=== PATIENT | male | born 1955 | race Caucasian/White ===

== ENCOUNTER 2021-06-22 11:15 | Inpatient (IN) | payer BC, SELFPAY ==
--- NOTE | ~2021-06-22 | CT_ITS ---
EXAMINATION: CT ABDOMEN AND PELVIS WITH CONTRAST CLINICAL INFORMATION: Left lower quadrant pain COMPARISON: None TECHNIQUE: Multidetector volumetric images were obtained from the superior aspect of the liver through the pubic symphysis following administration 85 mL of Omnipaque 350 intravenous contrast. Sagittal and coronal reformatted images were obtained on the technologist's workstation. Oral contrast: No This CT examination was performed using dose optimization techniques as appropriate, variously including the following: *Automated exposure control *Adjustment of mA and/or kV according to patient size (this includes techniques or standardized protocols for targeted exams where dose is matched to indication/reason for exam; i.e. extremities or head) *Use of iterative reconstruction technique DLP: 45 mGy-cm FINDINGS: LUNG BASES: The visualized lung bases are unremarkable. LIVER, GALLBLADDER, AND BILIARY TREE: Multiple low-density lesions favoring cysts. No enhancing foci. Underlying liver morphology normal. No biliary ductal dilatation. The gallbladder is unremarkable with no evidence of radiopaque gallstones, gallbladder wall thickening, or obvious pericholecystic inflammatory changes. PANCREAS: Unremarkable. SPLEEN: Unremarkable. ADRENAL GLANDS: Unremarkable. KIDNEYS AND URETERS: The kidneys are normal in size, shape, and attenuation. No hydronephrosis, hydroureter, or calculi seen. No perinephric stranding. BLADDER: Unremarkable. GASTROINTESTINAL TRACT: Acute inflammatory changes left lower quadrant centered about the distal descending/sigmoid colon junction. There is extensive circumferential bowel wall thickening and engorgement of the vasa recta centered around large diverticula. Appearance is consistent with acute diverticulitis. Likely microperforation about the giant diverticula posteriorly at the level of inflammatory changes. No organized fluid collection. There is a large diverticula filled with debris measuring up to 2.5 cm more distally within the mid sigmoid colon. There is no associated pathologic lymphadenopathy. No small bowel abnormality. Appendix normal. ABDOMINAL WALL: No significant hernia is appreciated. LYMPH NODES: Normal. VASCULAR: Unremarkable. PELVIC VISCERA: Moderate prostatic enlargement. OSSEOUS STRUCTURES: Unremarkable. CT/CT abdomen pelvis w con IMPRESSION: Acute inflammatory changes long segment of left colon as above centered about a large diverticulum with localized microperforation. No organized abscess. Appearance is most consistent with acute diverticulitis. Fleischner guidelines were followed.
[2021-06-22 11:40] VITALS: BP 168/97; PULSE 94; RESP 18; TEMP 37.4; O2SAT 97; BMI 25.8
[2021-06-22 11:53] LABS: Basophils Percent Auto 0.2 % (0-2); Hematocrit 40.2 % (42.0-52.0); Hemoglobin 13.8 g/dl (14.0-18.0); Imm Gran Abs Auto 0.12 X10*3/uL (0.00-0.03); Imm Gran Pct Auto 0.6 % (0.0-0.4); Lymphocytes Absolute Auto 1.2 X10*3/uL (1.2-4.9); Lymphocytes Percent Auto 5.5 % (20-40); MANUAL DIFF FLAG SCAN; Mean Corpuscular HGB Conc 34.3 g/dl (31.0-36.0); Mean Corpuscular Hemoglobin 32.4 pg (27.0-33.0); Mean Corpuscular Volume 94.4 fL (80.0-98.0); Mean Platelet Volume 9.7 fL (9.4-12.4); Monocytes Absolute Auto 1.9 X10*3/uL (0.1-1.2); Monocytes Percent Auto 9.2 % (2-11); Neutrophils Absolute Auto 17.5 x10*3/uL (2.0-8.3); Neutrophils Percent Auto 84.5 % (45-73); Platelet Count 217 X10*3/uL (160-400); Red Blood Count 4.26 X10*6/uL (4.60-5.80); Red Cell Distribution Width 13.3 % (11.0-16.0); SCAN SMEAR FLAG 1; White Blood Count 20.7 X10*3/uL (4.8-10.8)
[2021-06-22 12:09] LABS: Alanine Aminotransferase 19 U/L (0-40); Albumin Level 4.2 g/dL (3.5-5.0); Alkaline Phosphatase 52 U/L (39-117); Anion Gap 14 (12-20); Aspartate Amino Transferase 17 U/L (5-37); Bilirubin Direct 0.6 mg/dL (0.0-0.5); Bilirubin Total 1.4 mg/dL (0.0-1.0); Blood Urea Nitrogen 12 mg/dL (9-16); Carbon Dioxide 20 mmol/L (22-29); Chloride 106 mmol/L (96-108); Creatinine Clr Calc Pharmacy 82.2; Estimated Glomerular Filt Rate > 60; Glucose Random 133 mg/dL (60-115); Lipase 14 U/L (8-78); Potassium 3.8 mmol/L (3.3-5.1); Sodium 136 mmol/L (135-145); Total Protein 6.9 g/dL (6.5-8.0)
[2021-06-22 12:56] LABS: SLIDE REVIEW VERIFIED
[2021-06-22 17:09] VITALS: BP 178/80; PULSE 98; RESP 18; TEMP 37.9; O2SAT 97
--- NOTE | 2021-06-22 17:14 | PC.NURSE ---
pt a&ox3, vss - bp elevated, per pt forgot to take lisinopril this am. pt c/o bilateral lower abd pain, worse on the left side, 3/10 pain, and chills since 2330 06/21/21. pending ED provider.
--- NOTE | 2021-06-22 17:51 | ED_ITS ---
HPI - Abdominal Pain General Chief Complaint: Abdominal Pain Stated Complaint: Abd pain/Chills Time Seen by Provider: 06/22/21 17:41 Source: patient Mode of arrival: ambulatory Limitations: no limitations History of Present Illness HPI narrative: The patient comes emergency room complaining of left lower quadrant pain starting last night after patient went to sleep. Patient states that yesterday he was doing well, went to sleep, 2 hours later he started having left lower quadrant pain. Initially, he describes the pain as fullness, bladder discomfort. Patient urinated but the pain became more evident in the left lower quadrant. Since then, the patient has been constant, nonradiating. Patient complaining of chills. Patient has not taking anything for pain. Patient denies history of constipation. No history of abdominal surgeries. Related Data Allergies Allergy/AdvReac Type Severity Reaction Status Date / Time No Known Allergies Allergy Verified 06/22/21 11:40 Review of Systems Review of Systems Constitutional : No Weight loss, No Fever, No Chills, No Night Sweats, No Fatigue, No Malaise ENT/Mouth : No Hearing loss, No Ear Pain, No Nasal Congestion, No Sinus Pain, No Hoarseness, No sore throat, No Rhinorrhea, No Swallowing Difficulty Eyes: No Eye Pain, No Swelling, No Redness, No Foreign Body, No Discharge, No Vision Changes Cardiovascular : No Chest Pain, No SOB, No Dyspnea on Exertion, No Orthopnea, No Edema, No Palpitations Respiratory : No Cough, No Sputum, No Wheezing, No Smoke Exposure, No Dyspnea Gastrointestinal : No Nausea, No Vomiting, No Diarrhea, No Constipation, complaining of constant left lower quadrant pain, nonradiating Genitourinary : no irregular bleeding, No Dysuria, No Urinary Frequency, No Hematuria, No Urinary Incontinence, No Urgency, No Flank Pain, No Urinary Flow Changes, No Hesitancy Musculoskeletal : No joint pain, No Myalgias, No Joint Swelling Skin : No Skin Lesions, No rash Neuro : No Weakness, No Numbness, No Paresthesias, No Loss of Consciousness, No Dizziness, No Headache Psych : No Anxiety/Panic, No Depression, No SI/HI/AH/VH, No Social Issues, Heme/Lymph: No Bruising, No Bleeding,No Lymphadenopathy Endocrine : No Polyuria, No Polydipsia, No Temperature Intolerance PMFSH Social History Social History Alcohol intake: current Alcohol intake frequency: a few times a week Alcohol type: beer Patient Tobacco Use Status: Current everyday Tobacco user Smoked in Last 30 Days: Yes Use of substances other than those prescribed or required for medical reasons: No Advance Directives: No Advance Directives Information Provided: No Physical Exam ED Vital Signs: Vital Signs - 24 hr 06/22/21 11:40 06/22/21 17:09 06/22/21 17:58 Temperature 99.4 F 100.2 F 101.8 F H Pulse Rate 94 98 Respiratory Rate 18 18 Blood Pressure 168/97 H 178/80 H Pulse Oximetry 97 97 06/22/21 20:05 Temperature Pulse Rate 81 Respiratory Rate 14 Blood Pressure 133/70 Pulse Oximetry 96 BMI result Body Mass Index 25.8 Const Other: Appearance: Alert. Oriented X3. No acute distress. Eyes: Pupils equal, round and reactive to light. ENT: Pharynx normal. Neck: Normal inspection. Neck supple. No lymph nodes noted. No crepitus CVS: Normal heart rate and rhythm. Pulses normal. Normal S1 and S2 Respiratory: No respiratory distress. Breath sounds normal. No Wheezing. No rales Abdomen: Soft , tenderness to palpation in the left lower quadrant, mild rebound, no guarding Skin: Skin warm and dry. Normal skin color. Normal skin turgor. Extremities: No lower extremity edema. No Lacerations. No Rash Neuro: Oriented X 3. No motor deficit. No sensory deficit. Moving all extremities. No slurred speech. CN 2 through 12 grossly intact Psych: calm, cooperative, normal affect Course Course Course Narrative: Patient receiving IV fluid, morphine,. Patient has an elevated white blood cell count of 20.7, patient likely has diverticulitis versus colitis. CT scan pending 20:[address] scan has returned, patient has diverticulitis with a microperforation. Surgery consult pending. Patient's blood pressure in the 130s, heart rate 80, sepsis not suspected. At this time, patient does not have any abdominal pain at all. Patient has been given Zosyn. At this time sepsis is not suspect. I discussed the patient with Dr. Berry from surgery, patient will be admitted. MDM - Abdominal Pain Lab Data Result diagrams: 06/22/21 11:47 06/22/21 11:47 Labs: Lab Results 06/22/21 06/22/21 06/22/21 Range/Units 11:47 11:47 18:17 WBC 20.7 H (4.8-10.8) X10*3/uL RBC 4.26 L (4.60-5.80) X10*6/uL Hgb 13.8 L (14.0-18.0) g/dl Hct 40.2 L (42.0-52.0) % MCV 94.4 (80.0-98.0) fL MCH 32.4 (27.0-33.0) pg MCHC 34.3 (31.0-36.0) g/dl RDW 13.3 (11.0-16.0) % Plt Count 217 (160-400) X10*3/uL MPV 9.7 (9.4-12.4) fL Immature Gran % (Auto) 0.6 H (0.0-0.4) % Neut % (Auto) 84.5 H (45-73) % Lymph % (Auto) 5.5 L (20-40) % [place] % (Auto) 9.2 (2-11) % Eos % (Auto) 0.0 (0-4) % Baso % (Auto) 0.2 (0-2) % Lymph # (Auto) 1.2 (1.2-4.9) X10*3/uL [place] # (Auto) 1.9 H (0.1-1.2) X10*3/uL Eos # (Auto) 0.0 (0.0-0.4) X10*3/uL Baso # (Auto) 0.0 (0.0-0.2) X10*3/uL Abs Immat Gran (auto) 0.12 H (0.00-0.03) X10*3/uL Absolute Neuts (auto) 17.5 H (2.0-8.3) x10*3/uL Absolute Nucleated RBC 0.000 (0.0-0.012) X10*3/uL Nucleated RBC % (auto) 0.0 (0.0-0.2) /100WBC Smear Tech's Comments VERIFIED Sodium 136 (135-145) mmol/L Potassium 3.8 (3.3-5.1) mmol/L Chloride 106 (96-108) mmol/L Carbon Dioxide 20 L (22-29) mmol/L Anion Gap 14 (12-20) BUN 12 (9-16) mg/dL Creatinine 0.83 (0.5-1.4) mg/dL Estim Creat Clear Calc 82.2 Estimated GFR > 60 Random Glucose 133 H (60-115) mg/dL Calcium 9.0 (8.4-10.2) mg/dL Total Bilirubin 1.4 H (0.0-1.0) mg/dL Direct Bilirubin 0.6 H (0.0-0.5) mg/dL AST 17 (5-37) U/L ALT 19 (0-40) U/L Alkaline Phosphatase 52 (39-117) U/L Total Protein 6.9 (6.5-8.0) g/dL Albumin 4.2 (3.5-5.0) g/dL Lipase 14 (8-78) U/L Urine Color YELLOW Urine Appearance CLEAR Urine pH 6.0 (5.0-8.0) Ur Specific [place] >= 1.030 H (1.005-1.025) Urine Protein 1+ H (NEG-TRACE) MG/DL Urine Glucose (UA) NEG (NEG) MG/DL Urine Ketones 5 (NEG) MG/DL Urine Blood 1+ H (NEG) Urine Nitrite NEG (NEG) Ur Leukocyte Esterase NEG (NEG) Urine RBC 0-2 (0) /HPF Urine WBC 0 (0-4) /HPF Ur Squamous Epith Cells TRACE /LPF Urine Bacteria 1+ /LPF Discharge Plan Discharge Clinical Impression: Diverticulitis of colon with perforation Patient Disposition: Admitted As Inpatient
[2021-06-22 17:58] VITALS: TEMP 38.8
[2021-06-22] MEDS: 0.9 % Sodium Chloride 1,000 ML 999 ML IVCONT (18:14)
[2021-06-22] MEDS: Morphine Sulfate 4 MG/ML CARTRIDGE IVPUSH (18:14)
[2021-06-22] MEDS: ondansetron HCL 4 MG/2 ML VIAL IVPUSH (18:15)
[2021-06-22] MEDS: Acetaminophen 325 MG TABLET 975 MG PO (18:15)
[2021-06-22 18:24] LABS: Appearance Urine CLEAR; Color Urine YELLOW; Glucose Urine UA NEG (NEG); Leukocyte Esterase Urine NEG (NEG); Nitrite Urine NEG (NEG); Specific Gravity - Urine >= 1.030 (1.005-1.025); UACC Culture Trigger NO; Urine Blood 1+ (NEG); Urine Ketones 5 MG/DL (NEG); Urine Protein 1+ MG/DL (NEG-TRACE)
[2021-06-22 18:31] LABS: Bacteria Urine 1+ /LPF; RBC Urine 0-2 /HPF (0); Squamous Epithelial Cell Urine TRACE /LPF; WBC Urine 0 /HPF (0-4)
[2021-06-22] MEDS: iohexoL 350 MG/ML 100 ML INFUS..BTL IV (18:47)
[2021-06-22 20:05] VITALS: BP 133/70; PULSE 81; RESP 14; O2SAT 96
[2021-06-22] MEDS: Piperacillin Sodium/Tazobactam 3.375 GM in 0.9 % Sodium Chloride 50 ML IV (21:15)
--- NOTE | 2021-06-22 21:54 | PHA.MEDREC ---
Pharmacy Consult ? Medication Reconciliation Pharmacy has completed the medication reconciliation.
[2021-06-22] MEDS: Lactated Ringers 1,000 ML 125 ML IVCONT (22:31)
[2021-06-23 00:21] VITALS: BP 133/64; PULSE 76; RESP 14; O2SAT 95
--- NOTE | 2021-06-23 02:43 | PC.NURSE ---
I assumed nursing care of Salvador at 1900. Since that time he has remained alert and oriented x 3, resting in bed without complaints. He states he came tot he ED for evaluation of left sided abdominal pain and tenderness. He is aware that he has been admitted for a microperforated diverticuli. Since I assumed care he has been pain free. Respirations are non-labored, speech clear and appropriate, RR WNL, no cyanosis, room air sat's 95% or better. No nausea. No vomiting. he has remained NPO with the exception of a few ice chips to wet his whistle. Skin pink/warm/dry. IVF's infusing. IV abx completed. Pt to ED overflow unit. Nursing report to RACHEL Segovia.
[2021-06-23 05:27] VITALS: BP 130/68; PULSE 74; RESP 14; TEMP 36.8; O2SAT 97
[2021-06-23] MEDS: Lactated Ringers 1,000 ML 125 ML IVCONT (05:29)
[2021-06-23] MEDS: Piperacillin Sodium/Tazobactam 3.375 GM in 0.9 % Sodium Chloride 50 ML IV ×3 (05:29→22:17)
--- NOTE | 2021-06-23 07:57 | P.HPGS_ITS ---
History of Present Illness History of Present Illness Date of Service: 06/23/21 Chief complaint: sigmoid diverticulitis Narrative: Salvador Geronimo is a 65 year old male who reports a history of well-controlled hypertension on lisinopril, 20 mg and history of colon polyps but no personal or family history of inflammatory bowel disease nor colorectal cancer. Patient had been doing well until last night around 09:00 o'clock when he went to bed them was abruptly woken with symptoms of obstipation and left lower quadrant pain. This morning, he reports he is doing much better. Phone call and discussion with the ER physician last night showed a leukocytosis and possible contained perforation in the sigmoid colon consistent with sigmoid diverticulitis. I admitted the patient to assume care and management. The patient reports his pain is improved, denies nausea or vomiting. He reports he is passing gas but not had a bowel movement. He denies any headache, visual changes, upper respiratory tract symptoms, chest pain, difficulty breathing or shortness of breath. Abdominal pain as described. Denies urinary issues. No other significant symptoms or disclosed by the patient and a 13 point review of systems. Review of Systems 2 Review of Systems: Yes all other systems are reviewed and are negative PMFSH Family History Pertinent family history: He denies diabetes, [place], cardiac, pulmonary, hepatic or renal disorders. Personal history of colon polyps and has had 3 colonoscopies, the last was about a year ago per patient. No family history of colorectal cancer, inflammatory bowel disease. Social History Social History Alcohol intake: current Alcohol intake frequency: a few times a week Alcohol type: beer Patient Tobacco Use Status: Current everyday Tobacco user Smoked in Last 30 Days: Yes Use of substances other than those prescribed or required for medical reasons: No Advance Directives: No Advance Directives Information Provided: No Travel History Ebola Risk: Travel/Contact With Anyone From Affected Area/s: No I have personally reviewed the patient's Ebola risk: Yes Recent Travel in [place] Within the Last 8 Weeks: No Recent Out of Country Travel Within the Last 8 Weeks: No Meds Allergies Allergy/AdvReac Type Severity Reaction Status Date / Time No Known Allergies Allergy Verified 06/22/21 11:40 Active Medications: Current Medications Heparin Sodium (Porcine) (Heparin Sodium,Porcine 5,000 Unit/Ml Vial) 5,000 unit SUBCUT Q12H [facility] Last Admin: 06/22/21 22:12 Dose: Not Given Documented by: Piperacillin Sod/Tazobactam (Sod 3.375 gm/ Sodium Chloride) 50 mls @ 100 mls/hr IV Q8H [facility] Last Infusion: 06/23/21 06:05 Dose: Infused Documented by: Lactated Ringer's (Lr) 1,000 mls @ 125 mls/hr IVCONT .Q8H [facility] Last Admin: 06/23/21 05:29 Dose: 125 mls/hr Documented by: Pharmacy Consult (Consult Rx Perform Med Rec) 1 each MISCELLANE ONCE PRN PRN Reason: Consult order Sodium Chloride (0.9 % Sodium Chloride Flush 3 Ml Syringe) 3 ml IVFLUSH QSHIFT [facility] Last Admin: 06/23/21 00:05 Dose: Not Given Documented by: Home Medications Medication Instructions Recorded Confirmed Last Taken Type lisinopril 20 mg tablet 1 tab PO DAILY 06/22/21 06/22/21 06/21/21 History Physical Exam Vital Signs: Vital Signs: Last Vital Signs Temp 98.2 F 06/23/21 05:27 Pulse 74 06/23/21 05:27 Resp 14 06/23/21 05:27 BP 130/68 06/23/21 05:27 Pulse Ox 97 06/23/21 05:27 BMI result Body Mass Index 25.8 On exam, he is nontoxic and in surprisingly good spirits. He is nontoxic. NC/AT, PERRLA, EOMI Neck is supple with no masses, adenopathy or bruits, thyroid is nontender and fr ee of dominant masses Oropharynx is clear, Mallampati class 3 Heart is regular, normal S1-S2 without rubs or murmurs Lungs are clear and equal with no audible wheezing, rubs or dullness to percussion No CVA tenderness present Abdomen is overweight and soft with left lower quadrant tenderness with no rebound, rigidity or guarding. Mild peritoneal irritation to percussion in the left lower quadrant is present No hernias are appreciated. No bruits are appreciated no masses are appreciated Rectal is deferred Skin is good turgor and is free of rashes Extremities free of cyanosis clubbing edema Mood and affect and judgment appear normal Results Results Labs: Short CBC 06/22/21 Range/Units 11:47 WBC 20.7 H (4.8-10.8) X10*3/uL Hgb 13.8 L (14.0-18.0) g/dl Hct 40.2 L (42.0-52.0) % Plt Count 217 (160-400) X10*3/uL BMP 06/22/21 11:47 Sodium 136 Potassium 3.8 Chloride 106 Carbon Dioxide 20 L BUN 12 Creatinine 0.83 Calcium 9.0 Liver Function 06/22/21 Range/Units 11:47 Total Bilirubin 1.4 H (0.0-1.0) mg/dL Direct Bilirubin 0.6 H (0.0-0.5) mg/dL AST 17 (5-37) U/L ALT 19 (0-40) U/L Alkaline Phosphatase 52 (39-117) U/L Albumin 4.2 (3.5-5.0) g/dL Urine 06/22/21 Range/Units 18:17 Urine Color YELLOW Urine Appearance CLEAR Urine pH 6.0 (5.0-8.0) Ur Specific [place] >= 1.030 H (1.005-1.025) Urine Protein 1+ H (NEG-TRACE) MG/DL Urine Glucose (UA) NEG (NEG) MG/DL Abdomen CT scan report/results: report reviewed CT scan - pelvis: report reviewed Additional studies: The patient was admitted with a leukocytosis of 20.7, hemoglobin of 13.8, platelet count 217 Electrolytes are within normal parameters; BUN 12, creatinine 0.83, glucose 133 Total bilirubin is slightly elevated at 1.4, transaminases alkaline phosphatase normal. Lipase is normal. Albumin 4.2 Assessment and Plan (1) HTN (hypertension): Status: Acute (2) Cigarette smoker: Status: Acute Plan I reviewed the pathophysiology of diverticulitis in the treatment plan and possible need to repeat a colonoscopy to exclude malignancy given his minor anemia and history of colon polyps. He verbalized understanding of the need to maintain strict NPO to try to minimize need for operative resection and possible colostomy. Continue Zosyn IV q.8 hours; continued NPO except for ice chips and medications with a sip of water. Please place SCDs on the patient. Call with questions. Quality Stroke Does the patient have a stroke diagnosis?: No VTE Prior VTE?: Yes VTE Risk Level:: Medical - moderate - high VTE Device Contraindication: N/A - Device Ordered VTE Drug Contraindication: N/A - Med Ordered Procedures Date of Service Date of Service: 06/23/21
[2021-06-23 08:26] VITALS: BP 144/66; PULSE 73; RESP 20; TEMP 36.6; O2SAT 97
[2021-06-23] MEDS: Lactated Ringers 1,000 ML 100 ML IVCONT ×2 (08:32→22:16)
[2021-06-23] MEDS: Heparin Sodium,Porcine 5,000 UNIT/ML VIAL 5000 UNIT SUBCUT ×2 (08:37→22:16)
[2021-06-23 09:19] LABS: Anion Gap 11 (12-20); Blood Urea Nitrogen 10 mg/dL (9-16); Calcium 8.1 mg/dL (8.4-10.2); Carbon Dioxide 21 mmol/L (22-29); Chloride 108 mmol/L (96-108); Creatinine Clr Calc Pharmacy 88.6; Estimated Glomerular Filt Rate > 60; Glucose Random 117 mg/dL (60-115); Potassium 3.7 mmol/L (3.3-5.1); Sodium 136 mmol/L (135-145)
[2021-06-23 09:23] LABS: COVID-19 Test Negative (Negative); IDNOW Serial# 55D5AD1C
--- NOTE | 2021-06-23 11:06 | PC.NURSE ---
pt state s that voided in the toilet and note very small amt of blood in his urine, md aware.
[2021-06-23 11:43] VITALS: BP 144/71; PULSE 76; RESP 18; TEMP 36.7; O2SAT 97
[2021-06-23] MEDS: lisinopriL 20 MG TABLET PO (11:48)
[2021-06-23 13:21] LABS: MANUAL DIFF FLAG NO
[2021-06-23 13:29] LABS: Basophils Percent Auto 0.2 % (0-2); Hematocrit 35.6 % (42.0-52.0); Imm Gran Abs Auto 0.17 X10*3/uL (0.00-0.03); Imm Gran Pct Auto 0.8 % (0.0-0.4); Lymphocytes Absolute Auto 1.5 X10*3/uL (1.2-4.9); Lymphocytes Percent Auto 7.6 % (20-40); Mean Corpuscular HGB Conc 33.7 g/dl (31.0-36.0); Mean Corpuscular Hemoglobin 32.7 pg (27.0-33.0); Mean Platelet Volume 10.3 fL (9.4-12.4); Monocytes Percent Auto 5.1 % (2-11); Neutrophils Absolute Auto 17.5 x10*3/uL (2.0-8.3); Neutrophils Percent Auto 86.3 % (45-73); Platelet Count 168 X10*3/uL (160-400); Red Blood Count 3.67 X10*6/uL (4.60-5.80); Red Cell Distribution Width 13.3 % (11.0-16.0); White Blood Count 20.3 X10*3/uL (4.8-10.8)
--- NOTE | 2021-06-23 14:55 | MHC.CM.PN ---
PT REPORTS HE LIVES AT HOME WITH HIS AND IS INDEPENDENT WITH ALL CARE PT REPORTS HE USES NO DME AND HAS NO HOME SERVICES PT DOES NOT HAVE A HCP AND DECLINES TO COMPLETE ONE TODAY HE IS AWARE CM CAN ASSIST IF HE CHANGES HIS MIND PCP: MADELYN DAY PT IS COVID VACCINATED AND BOOSTED CURRENT DC PLAN IS HOME WITH NO SERVICES PT WILL DRIVE HIMSELF AT DC
[2021-06-23 17:00] VITALS: BP 151/74; PULSE 77; RESP 18; TEMP 37.3; O2SAT 96
[2021-06-23 20:20] VITALS: BP 122/65; PULSE 72; RESP 18; TEMP 36.8; O2SAT 97
[2021-06-23] MEDS: 0.9 % Sodium Chloride Flush 3 ML SYRINGE IVFLUSH (22:17)
[2021-06-24] MEDS: Piperacillin Sodium/Tazobactam 3.375 GM in 0.9 % Sodium Chloride 50 ML IV ×4 (05:44→22:42)
[2021-06-24 06:43] VITALS: BP 120/61; PULSE 67; TEMP 36.7; O2SAT 98
[2021-06-24 07:04] LABS: MANUAL DIFF FLAG NO
[2021-06-24 07:14] LABS: Basophils Percent Auto 0.3 % (0-2); Eosinophils Percent Auto 0.2 % (0-4); Imm Gran Abs Auto 0.14 X10*3/uL (0.00-0.03); Lymphocytes Absolute Auto 1.4 X10*3/uL (1.2-4.9); Lymphocytes Percent Auto 10.7 % (20-40); Mean Corpuscular HGB Conc 33.3 g/dl (31.0-36.0); Mean Corpuscular Hemoglobin 32.3 pg (27.0-33.0); Mean Corpuscular Volume 96.8 fL (80.0-98.0); Mean Platelet Volume 10.3 fL (9.4-12.4); Monocytes Absolute Auto 0.9 X10*3/uL (0.1-1.2); Monocytes Percent Auto 6.6 % (2-11); Neutrophils Absolute Auto 10.9 x10*3/uL (2.0-8.3); Neutrophils Percent Auto 81.2 % (45-73); Platelet Count 168 X10*3/uL (160-400); Red Blood Count 3.72 X10*6/uL (4.60-5.80); Red Cell Distribution Width 13.1 % (11.0-16.0); White Blood Count 13.5 X10*3/uL (4.8-10.8)
--- NOTE | 2021-06-24 08:03 | P.PNGS_ITS ---
Subjective Subjective Date of Service: 06/24/21 Patient reports: feels better, pain is less, flatus and bowel movement Interval history: The patient is evaluated for his contained micro perforation from sigmoid diverticulitis. He reports interval improvement and notes he has had 2 bowel movements with no bleeding. He is passing gas and feels less bloated. The only pain that is present is when he pushes deep in his left lower quadrant. He otherwise denies interval change in new health problems such as headache, visual disturbances, chest pain, difficulty breathing or shortness of breath. He denies lower extremity pain or swelling. Physical Exam Vital Signs: Vital Signs: Last Vital Signs Temp 98.0 F 06/24/21 06:43 Pulse 67 06/24/21 06:43 Resp 18 06/23/21 20:20 BP 120/61 06/24/21 06:43 Pulse Ox 98 06/24/21 06:43 BMI result Body Mass Index 25.8 On exam, the patient appears comfortable and is in good spirits. NC/AT, PERRLA, EOMI, sclera are anicteric, conjunctiva pink and moist Oropharynx mucosa is pink and moist, no aphthous ulcers are present Abdomen is overweight and soft with less tenderness and no peritoneal sign to percussion. On deep palpation in the left lower quadrant, there was some residual pain. Extremities are free of cyanosis clubbing and edema The patient's mood affect and insight all appear normal and intact. Objective Data Active Medications Acetaminophen (Acetaminophen 325 Mg Tablet) 650 mg PO Q6H PRN PRN Reason: Pain, Mild (Pain Scale 1-3) Heparin Sodium (Porcine) (Heparin Sodium,Porcine 5,000 Unit/Ml Vial) 5,000 unit SUBCUT Q12H [facility] Last Admin: 06/23/21 22:16 Dose: 5,000 unit Documented by: ARBEN Lactated Ringer's (Lr) 1,000 mls @ 100 mls/hr IVCONT .Q10H [facility] Last Admin: 06/24/21 06:04 Dose: Not Given Documented by: LANG Non-Admin Reason: IV Running Piperacillin Sod/Tazobactam (Sod 3.375 gm/ Sodium Chloride) 50 mls @ 100 mls/hr IV Q6H [facility] Lisinopril (Lisinopril 20 Mg Tablet) 20 mg PO DAILY [facility]; Protocol Ondansetron HCl (Ondansetron Hcl 4 Mg/2 Ml Vial) 4 mg IVPUSH Q6H PRN PRN Reason: Nausea and Vomiting Pharmacy Consult (Consult Rx Perform Med Rec) 1 each MISCELLANE ONCE PRN PRN Reason: Consult order Sodium Chloride (0.9 % Sodium Chloride Flush 3 Ml Syringe) 3 ml IVFLUSH QSHIFT [facility] Last Admin: 06/23/21 22:17 Dose: 3 ml Documented by: ARBEN Labs CBC & Chem 7: 06/24/21 06:52 06/23/21 08:39 Labs: Laboratory Results - last 24 hr 06/23/21 06/23/21 06/23/21 08:39 08:45 12:59 MCV 97.0 MCH 32.7 MCHC 33.7 RDW 13.3 Plt Count 168 MPV 10.3 Immature Gran % (Auto) 0.8 H Neut % (Auto) 86.3 H Lymph % (Auto) 7.6 L [place] % (Auto) 5.1 Eos % (Auto) 0.0 Baso % (Auto) 0.2 Lymph # (Auto) 1.5 [place] # (Auto) 1.0 Eos # (Auto) 0.0 Baso # (Auto) 0.0 Abs Immat Gran (auto) 0.17 H Absolute Neuts (auto) 17.5 H Absolute Nucleated RBC 0.000 Nucleated RBC % (auto) 0.0 Anion Gap 11 L Estim Creat Clear Calc 88.6 Estimated GFR > 60 Random Glucose 117 H Calcium 8.1 L D COVID-19 ([facility]) Negative COVID-19 Clin Com See Note 06/24/21 06:52 MCV 96.8 MCH 32.3 MCHC 33.3 RDW 13.1 Plt Count 168 MPV 10.3 Immature Gran % (Auto) 1.0 H Neut % (Auto) 81.2 H Lymph % (Auto) 10.7 L [place] % (Auto) 6.6 Eos % (Auto) 0.2 Baso % (Auto) 0.3 Lymph # (Auto) 1.4 [place] # (Auto) 0.9 Eos # (Auto) 0.0 Baso # (Auto) 0.0 Abs Immat Gran (auto) 0.14 H Absolute Neuts (auto) 10.9 H Absolute Nucleated RBC 0.000 Nucleated RBC % (auto) 0.0 Anion Gap Estim Creat Clear Calc Estimated GFR Random Glucose Calcium COVID-19 ([facility]) COVID-19 Clin Com Procedures Date of Service Date of Service: 06/24/21 Progress Note: A&P Assessment and plan (1) Diverticulitis of colon with perforation: Status: Acute (2) HTN (hypertension): Status: Acute (3) Cigarette smoker: Status: Acute Plan Will start clear liquids. We will decrease IV fluid and continue to trend physical exam and labs. Patient was instructed to stop and notify the nurse if he has abdominal pain, bloating, nausea or vomiting when he starts clear liquids. Will trend labs overnight and assess. I should be called for worsening abdominal pain, significant clinical changes or new concerns. Patient's hypertension remained stable on his lisinopril. Time Spent With Patient Time: Total time spent is greater than 50% in coordination of care (as documented) at patient's floor/unit and/or counseling patient: Quality Stroke Does the patient have a stroke diagnosis?: No VTE Prior VTE?: Yes VTE Risk Level:: Medical - moderate - high VTE Device Contraindication: N/A - Device Ordered VTE Drug Contraindication: N/A - Med Ordered
[2021-06-24] MEDS: Heparin Sodium,Porcine 5,000 UNIT/ML VIAL 5000 UNIT SUBCUT ×2 (08:37→20:46)
[2021-06-24] MEDS: 0.9 % Sodium Chloride Flush 3 ML SYRINGE IVFLUSH ×2 (08:39→22:42)
[2021-06-24] MEDS: Lactated Ringers 1,000 ML 100 ML IVCONT (08:39)
[2021-06-24] MEDS: lisinopriL 20 MG TABLET PO (08:44)
[2021-06-24 10:05] VITALS: BP 135/71; PULSE 65; RESP 12; O2SAT 99
[2021-06-24 15:04] VITALS: BP 142/72; PULSE 65; RESP 17; TEMP 36.3; O2SAT 97
[2021-06-24 15:49] VITALS: BP 139/71; PULSE 61; RESP 18; TEMP 36.3; O2SAT 99
[2021-06-24 19:45] VITALS: BP 172/74; PULSE 67; RESP 17; TEMP 36.6; O2SAT 99
[2021-06-24 23:43] VITALS: BP 129/60; PULSE 60; RESP 18; TEMP 36.4; O2SAT 97
[2021-06-25] MEDS: Lactated Ringers 1,000 ML 75 ML IVCONT (02:33)
[2021-06-25 03:46] VITALS: BP 155/60; PULSE 62; RESP 18; TEMP 36.8; O2SAT 97
[2021-06-25] MEDS: Piperacillin Sodium/Tazobactam 3.375 GM in 0.9 % Sodium Chloride 50 ML IV ×2 (04:02→11:12)
[2021-06-25 06:06] LABS: MANUAL DIFF FLAG NO
[2021-06-25 06:13] LABS: Basophils Absolute Auto 0.1 X10*3/uL (0.0-0.2); Basophils Percent Auto 0.7 % (0-2); Eosinophils Absolute Auto 0.1 X10*3/uL (0.0-0.4); Eosinophils Percent Auto 0.8 % (0-4); Hemoglobin 12.2 g/dl (14.0-18.0); Imm Gran Abs Auto 0.42 X10*3/uL (0.00-0.03); Imm Gran Pct Auto 3.9 % (0.0-0.4); Lymphocytes Absolute Auto 1.9 X10*3/uL (1.2-4.9); Lymphocytes Percent Auto 17.4 % (20-40); Mean Corpuscular Hemoglobin 32.2 pg (27.0-33.0); Mean Corpuscular Volume 97.6 fL (80.0-98.0); Mean Platelet Volume 10.4 fL (9.4-12.4); Monocytes Percent Auto 9.3 % (2-11); Neutrophils Absolute Auto 7.2 x10*3/uL (2.0-8.3); Neutrophils Percent Auto 67.9 % (45-73); Platelet Count 181 X10*3/uL (160-400); Red Blood Count 3.79 X10*6/uL (4.60-5.80); Red Cell Distribution Width 13.1 % (11.0-16.0); White Blood Count 10.7 X10*3/uL (4.8-10.8)
[2021-06-25 06:35] LABS: Anion Gap 10 (12-20); Blood Urea Nitrogen 9 mg/dL (9-16); Calcium 8.2 mg/dL (8.4-10.2); Carbon Dioxide 24 mmol/L (22-29); Chloride 109 mmol/L (96-108); Creatinine Clr Calc Pharmacy 89.7; Estimated Glomerular Filt Rate > 60; Glucose Random 88 mg/dL (60-115); Potassium 4.3 mmol/L (3.3-5.1); Sodium 139 mmol/L (135-145)
[2021-06-25 07:39] VITALS: BP 136/65; PULSE 72; RESP 17; TEMP 36.1; O2SAT 99
--- NOTE | 2021-06-25 07:56 | P.PNGS_ITS ---
Subjective Subjective Date of Service: 06/25/21 Interval history: Feels well this morning. Denies any abdominal pain. Started clear liquids yesterday and is tolerating without any increasing pain, nausea or vomiting. No further BM since yesterday morning. Physical Exam Vital Signs: Vital Signs: Last Vital Signs Temp 97.0 F 06/25/21 07:39 Pulse 72 06/25/21 07:39 Resp 17 06/25/21 07:39 BP 136/65 06/25/21 07:39 Pulse Ox 99 06/25/21 07:39 BMI result Body Mass Index 25.8 Const: General: comfortable, no acute distress and alert Nutritional Appearance: well nourished Orientation/consciousness: patient oriented x3 Resp: Effort & Inspection: normal respiratory effort GI: Inspection: No distended Palpation (GI): Soft to palpation, Tenderness to palpation present (GI) (very mild LLQ tenderness to deep palpation), no guarding and not rigid Percussion: Yes normal to percussion Skin: General skin exam: no rashes or lesions noted Neuro: General: patient oriented x3 Extrem: General: Yes no clubbing, cyanosis or edema Psych: Affect: normal affect Objective Data Active Medications Acetaminophen (Acetaminophen 325 Mg Tablet) 650 mg PO Q6H PRN PRN Reason: Pain, Mild (Pain Scale 1-3) Heparin Sodium (Porcine) (Heparin Sodium,Porcine 5,000 Unit/Ml Vial) 5,000 unit SUBCUT Q12H [facility] Last Admin: 06/24/21 20:46 Dose: 5,000 unit Documented by: ALEXANDER Lactated Ringer's (Lr) 1,000 mls @ 75 mls/hr IVCONT .[id number] [facility] Last Admin: 06/25/21 02:33 Dose: 75 mls/hr Documented by: ALEXANDER Piperacillin Sod/Tazobactam (Sod 3.375 gm/ Sodium Chloride) 50 mls @ 100 mls/hr IV Q6H [facility] Last Infusion: 06/25/21 04:29 Dose: 0 mls/hr Documented by: ALEXANDER Lisinopril (Lisinopril 20 Mg Tablet) 20 mg PO DAILY [facility]; Protocol Last Admin: 06/24/21 08:44 Dose: 20 mg Documented by: LYSSA Ondansetron HCl (Ondansetron Hcl 4 Mg/2 Ml Vial) 4 mg IVPUSH Q6H PRN PRN Reason: Nausea and Vomiting Pharmacy Consult (Consult Rx Perform Med Rec) 1 each MISCELLANE ONCE PRN PRN Reason: Consult order Sodium Chloride (0.9 % Sodium Chloride Flush 3 Ml Syringe) 3 ml IVFLUSH QSHIFT [facility] Last Admin: 06/24/21 22:42 Dose: 3 ml Documented by: ALEXANDER Labs CBC & Chem 7: 06/25/21 05:46 06/25/21 05:46 Labs: Laboratory Results - last 24 hr 06/25/21 06/25/21 05:46 05:46 MCV 97.6 MCH 32.2 MCHC 33.0 RDW 13.1 Plt Count 181 MPV 10.4 Immature Gran % (Auto) 3.9 H Neut % (Auto) 67.9 Lymph % (Auto) 17.4 L [place] % (Auto) 9.3 Eos % (Auto) 0.8 Baso % (Auto) 0.7 Lymph # (Auto) 1.9 [place] # (Auto) 1.0 Eos # (Auto) 0.1 Baso # (Auto) 0.1 Abs Immat Gran (auto) 0.42 H Absolute Neuts (auto) 7.2 Absolute Nucleated RBC 0.000 Nucleated RBC % (auto) 0.0 Anion Gap 10 L Estim Creat Clear Calc 89.7 Estimated GFR > 60 Random Glucose 88 Calcium 8.2 L Procedures Date of Service Date of Service: 06/25/21 Progress Note: A&P Assessment and plan (1) Diverticulitis of colon with perforation: Status: Acute (2) HTN (hypertension): Status: Acute (3) Cigarette smoker: Status: Acute Plan 65 year old male with HTN, smoker admitted with sigmoid diverticulitis with contained microperforation. On IV zosyn, day 3. He has done well and improved with supportive measures. VSS- afebrile. Abdomen remains very benign with only very mild tenderness to deep palpation. Will advance to low residue diet. D/c IVF. Will reassess later today, if tolerating solid diet without worsening of abdominal pain, stable for d/c to home today on PO course of Augmentin and colace. Discussed he is also to follow up with Dr. Berry in office in 7-10 days. Patient comfortable with plan. Smoking cessation ordered. Time Spent With Patient Time: Total time spent is greater than 50% in coordination of care (as documented) at patient's floor/unit and/or counseling patient: Quality Stroke Does the patient have a stroke diagnosis?: No VTE Prior VTE?: Yes VTE Risk Level:: Medical - moderate - high VTE Device Contraindication: N/A - Device Ordered VTE Drug Contraindication: N/A - Med Ordered
--- NOTE | 2021-06-25 08:12 | P.PNGS_ITS ---
Subjective Subjective Date of Service: 06/25/21 Patient reports: no new complaints, feels better and flatus Interval history: Continues to endorse interval progress & denies any left lower quadrant pain to palpation. He has had a couple more bowel movements and continues to pass gas. He has no new complaints such as headache, chest pain, visual changes, rectal bleeding upper lower extremity weakness. Physical Exam Vital Signs: Vital Signs: Last Vital Signs Temp 97.0 F 06/25/21 07:39 Pulse 72 06/25/21 07:39 Resp 17 06/25/21 07:39 BP 136/65 06/25/21 07:39 Pulse Ox 99 06/25/21 07:39 BMI result Body Mass Index 25.8 On exam, he is nontoxic and in good spirits. NC/AT, PERRLA, EOMI sclera remain anicteric and conjunctiva pink and moist Oropharynx is clear, moist no aphthous ulcers are present Abdomen is soft with no tenderness, rebound, rigidity or guarding and the peritoneal irritation to percussion is completely resolved. His lower extremities are free of cyanosis clubbing edema Mood, affect and judgment appear appropriate Objective Data Active Medications Acetaminophen (Acetaminophen 325 Mg Tablet) 650 mg PO Q6H PRN PRN Reason: Pain, Mild (Pain Scale 1-3) Heparin Sodium (Porcine) (Heparin Sodium,Porcine 5,000 Unit/Ml Vial) 5,000 unit SUBCUT Q12H [facility] Last Admin: 06/24/21 20:46 Dose: 5,000 unit Documented by: ALEXANDER Piperacillin Sod/Tazobactam (Sod 3.375 gm/ Sodium Chloride) 50 mls @ 100 mls/hr IV Q6H [facility] Last Infusion: 06/25/21 04:29 Dose: 0 mls/hr Documented by: ALEXANDER Lisinopril (Lisinopril 20 Mg Tablet) 20 mg PO DAILY [facility]; Protocol Last Admin: 06/24/21 08:44 Dose: 20 mg Documented by: LYSSA Ondansetron HCl (Ondansetron Hcl 4 Mg/2 Ml Vial) 4 mg IVPUSH Q6H PRN PRN Reason: Nausea and Vomiting Pharmacy Consult (Consult Rx Perform Med Rec) 1 each MISCELLANE ONCE PRN PRN Reason: Consult order Sodium Chloride (0.9 % Sodium Chloride Flush 3 Ml Syringe) 3 ml IVFLUSH QSHIFT [facility] Last Admin: 06/24/21 22:42 Dose: 3 ml Documented by: ALEXANDER Labs CBC & Chem 7: 06/25/21 05:46 06/25/21 05:46 Labs: Laboratory Results - last 24 hr 06/25/21 06/25/21 05:46 05:46 MCV 97.6 MCH 32.2 MCHC 33.0 RDW 13.1 Plt Count 181 MPV 10.4 Immature Gran % (Auto) 3.9 H Neut % (Auto) 67.9 Lymph % (Auto) 17.4 L [place] % (Auto) 9.3 Eos % (Auto) 0.8 Baso % (Auto) 0.7 Lymph # (Auto) 1.9 [place] # (Auto) 1.0 Eos # (Auto) 0.1 Baso # (Auto) 0.1 Abs Immat Gran (auto) 0.42 H Absolute Neuts (auto) 7.2 Absolute Nucleated RBC 0.000 Nucleated RBC % (auto) 0.0 Anion Gap 10 L Estim Creat Clear Calc 89.7 Estimated GFR > 60 Random Glucose 88 Calcium 8.2 L Procedures Date of Service Date of Service: 06/25/21 Progress Note: A&P Assessment and plan (1) Diverticulitis of colon with perforation: Status: Acute (2) HTN (hypertension): Status: Acute (3) Cigarette smoker: Status: Acute Plan The patient has made steady progress regarding his 1st bout of diverticulitis. The importance of follow-up with his PCP and previous endoscopy to consider a repeat colonoscopy based on his anatomy/morphology will need to be considered and if is deferred to his PCP and endoscopist. He will have his diet advanced to low residue. Be placed on docusate, 100 mg 2 tablets twice a day and follow up with me in 7-10 days. He is instructed to contact me a report to the emergency department if he clinically worsens. Time Spent With Patient Time: Total time spent is greater than 50% in coordination of care (as documented) at patient's floor/unit and/or counseling patient: Quality Stroke Does the patient have a stroke diagnosis?: No VTE Prior VTE?: Yes VTE Risk Level:: Medical - moderate - high VTE Device Contraindication: N/A - Device Ordered VTE Drug Contraindication: N/A - Med Ordered
[2021-06-25] MEDS: Heparin Sodium,Porcine 5,000 UNIT/ML VIAL 5000 UNIT SUBCUT (08:41)
[2021-06-25] MEDS: Docusate Sodium 100 MG CAPSULE 200 MG PO (08:42)
[2021-06-25] MEDS: 0.9 % Sodium Chloride Flush 3 ML SYRINGE IVFLUSH (08:42)
[2021-06-25] MEDS: lisinopriL 20 MG TABLET PO (08:42)
[2021-06-25 11:29] VITALS: BP 153/81; PULSE 68; RESP 18; TEMP 36.6; O2SAT 97
--- NOTE | 2021-06-25 12:36 | PM.DS ---
DS: Providers Provider Date of Service: 06/25/21 Date of admission: 06/22/21 20:55 Primary care physician: TALISHA Brito Attending physician on admission: Arnaldo Berry Attending physician on discharge: Arnaldo Berry DS: Diagnosis Discharge Diagnosis (1) Diverticulitis of colon with perforation: Status: Acute (2) HTN (hypertension): Status: Acute (3) Cigarette smoker: Status: Acute DS: Summary Hospital Course Hospital Course: BRIEF HPI: Salvador Geronimo is a 65 year old male who reports a history of well-controlled hypertension on lisinopril, 20 mg and history of colon polyps but no personal or family history of inflammatory bowel disease nor colorectal cancer. Patient had been doing well until last night around 09:00 o'clock when he went to bed them was abruptly woken with symptoms of obstipation and left lower quadrant pain. Work up showed a leukocytosis and possible contained perforation in the sigmoid colon consistent with sigmoid diverticulitis. The patient reports pain is improved this morning, denies nausea or vomiting. He reports he is passing gas but not had a bowel movement. He denies any headache, visual changes, upper respiratory tract symptoms, chest pain, difficulty breathing or shortness of breath. Abdominal pain as described. Denies urinary issues. HOSPITAL COURSE: He was admitted to the surgical service for treatment of the sigmoid diverticulitis with microperforation. He was kept NPO, started on IVF and IV zosyn q8h. He had an uncomplicated hospital course and improved with supportive measures. On HD #1, he felt improved and was without any abdominal pain. He had two non bloody bowel movements without worsening in pain. He was advanced to clear liquids as tolerated. He was ambulating. The following day, he continued to feel well. He was tolerating a clear liquid diet. His vitals were stable and abdomen remained benign with very minimal residual tenderness and without peritoneal signs. He was advanced to a low residue diet. He was reassessed later in the day and was tolerating this without any recurring symptoms. His WBC count continually downtrended and normalized. He felt well and ready for discharge. He completed a 3 day course of IV zosyn. He was discharged to home on 06/25/21 on a 7 day course of Augmentin BID and colace 2 capsules BID for one week. He is to follow up with Dr. Berry and his PCP in office upon discharge. Status at Discharge Functional status at discharge: independent ambulation Overall status at discharge: patient is back to baseline Time Spent with Patient Time attestation: Total time spent providing and/or coordinating discharge services: Discharge coordination time: Less than 30 minutes Quality: Safe Use of Opioids Does Pt have an Active Cancer Diagnosis on the Problem List?: No Quality: Stroke Does the patient have a stroke diagnosis?: No Physical Exam Vital Signs: Vital Signs: Last Vital Signs Temp 97.8 F 06/25/21 11:29 Pulse 68 06/25/21 11:29 Resp 18 06/25/21 11:29 BP 153/81 H 06/25/21 11:29 Pulse Ox 97 06/25/21 11:29 BMI result Body Mass Index 25.8 Const: General: comfortable, no acute distress and alert Orientation/consciousness: patient oriented x3 Resp: Effort & Inspection: normal respiratory effort GI: Inspection: No distended Palpation (GI): Soft to palpation, Tenderness to palpation present (GI) (very mild to deep palpation, LLQ), no guarding and not rigid Skin: General skin exam: no rashes or lesions noted Neuro: General: patient oriented x3 DS: Data Data Completed and Pending Labs on day of discharge: Laboratory Results - last 24 hr 06/25/21 06/25/21 05:46 05:46 WBC 10.7 RBC 3.79 L Hgb 12.2 L Hct 37.0 L MCV 97.6 MCH 32.2 MCHC 33.0 RDW 13.1 Plt Count 181 MPV 10.4 Immature Gran % (Auto) 3.9 H Neut % (Auto) 67.9 Lymph % (Auto) 17.4 L [place] % (Auto) 9.3 Eos % (Auto) 0.8 Baso % (Auto) 0.7 Lymph # (Auto) 1.9 [place] # (Auto) 1.0 Eos # (Auto) 0.1 Baso # (Auto) 0.1 Abs Immat Gran (auto) 0.42 H Absolute Neuts (auto) 7.2 Absolute Nucleated RBC 0.000 Nucleated RBC % (auto) 0.0 Sodium 139 Potassium 4.3 Chloride 109 H Carbon Dioxide 24 Anion Gap 10 L BUN 9 Creatinine 0.76 Estim Creat Clear Calc 89.7 Estimated GFR > 60 Random Glucose 88 Calcium 8.2 L Discharge Plan Discharge Patient Disposition: Home, Self-Care Discharge Diagnosis: sigmoid diverticulitis with microperforation Referrals: Tania Morton PA [Primary Care Provider] - 1 Week Arnaldo Berry MD [Physician] - 1 Week Discharge Medications: New amoxicillin-pot clavulanate [Augmentin] 500-125 mg tablet 1 tab PO BID Qty: 14 0RF docusate sodium [Colace] 100 mg capsule 100 mg PO BID Qty: 60 1RF Continued lisinopril 20 mg tablet 1 tab PO DAILY 0RF Discharge Orders: Discharge Order (Routine); Ordered 06/25/21 Ordered By: Trish Torrez Diet: other and regular diet Activity on Discharge: As tolerated Stand Alone Forms: Patient Portal Discharge page Activity Restrictions/Additional Instructions: You were admitted to the hospital and treated for diverticulitis of your colon. As explained, diverticular weak areas with thinner funez they can get plugged with stool and infected or can bleed. Resting her intestines allows healing and IV antibiotics will be switched to oral antibiotics to resolve the infection. If your pain returns and becomes worse, please contact Dr. Berry [phone] or report to the nearest emergency department. For the 1st week at home, take the antibiotics you were prescribed and be sure to take docusate, 100 mg, 2 tablets in the morning and 2 tablets later at night. Follow instructions for a low residue diet which include some sort of protein/meat/poultry or fish and a starch. Very well cooked green vegetables are acceptable but should be minimized at this point. After 1-2 weeks, he will need to go on to a high fiber diet and typically stop taking the stool softener. However, a few suffer from constipation, this medicine can be taken with little side effects if needed. The most important part to remember is that colon cancer can mimic diverticulitis and so follow-up with your regular doctor and a instructional interventionist for a colonoscopy is in order. Please contact your regular doctor/PCP at discharge. If you prefer to follow up with your primary care provider, please be sure that there comfortable dealing with diverticular disease. Alternately, call Dr. Berry over this office for follow-up in 1-2 weeks. Resume taking your regular medications. If you feel comfortable driving and working, you can return to work. Care Plan Goals: Return to baseline health and gradual return to activity as tolerated. Health Concerns: Sigmoid diverticulitis Plan of Treatment: Discharge to home on PO Augmentin Colace Follow up in office Assessment: Improved Patient Instructions: Diverticulitis (DC), Diverticulitis Diet (DC)
--- NOTE | 2021-06-25 13:14 | MHC.CM.PN ---
PATIENT IS DISCHARGED HOME - SELF CARE. RN AWARE OF PLAN.
== END 2021-06-25 13:56 | disposition home or self-care (01) | DRG 244 ==
LOC: HO.ED 21:39 → HO.EDOVER 22:08 → HO.S3 06-24 12:53
PROVIDERS: Admitting Provider Surgery; Emergency Provider Emergency Medicine; PCP Physician Assistant; Visit Provider Surgery
DX: K57.20 Diverticulitis of large intestine with perforation and abscess without bleeding (principal); I10 Essential (primary) hypertension; F17.210 Nicotine dependence, cigarettes, uncomplicated; Z20.822 Contact with and (suspected) exposure to COVID-19; Z71.6 Tobacco abuse counseling; Z86.010 Personal history of colon polyps; Z79.899 Other long term (current) drug therapy
CPT/HCPCS: 36415; 74177; 80048; 80076; 81001; 83690; 85025; 87635; 96361; 96365; 96375; 99285; J2270; J2405; J2543; Q9967

== ENCOUNTER 2024-12-16 02:23 | Inpatient (IN) | payer MEDICARE, SELFPAY ==
[2024-12-16] VITALS (12 sets, daily range): BP systolic 100–158; BP diastolic 48–69; PULSE 52–74; RESP 10–18; TEMP 36.7–37.7; O2SAT 92–98; BMI 25.8; BMI 25.3
--- NOTE | ~2024-12-16 | CT_ITS ---
CLINICAL HISTORY: LLQ Pain; Hx Divertic CT abdomen and pelvis with contrast Comparison: None provided Findings: Lung bases are clear. Gallbladder is unremarkable. No biliary dilatation. Multiple bilateral hepatic hypodensities are present measuring up to 2.3 x 1.5 cm in the right hepatic lobe which likely reflect hepatic cysts versus biliary hamartomas the spleen, pancreas, bilateral adrenal glands and bilateral kidneys are unremarkable. No urolithiasis. No bowel obstruction, pneumoperitoneum, or pneumatosis. Diverticulosis of the descending colon is present with mild associated fat stranding ( series 4 image 347 through 352 ) could suggest developing acute diverticulitis. No associated collections are present. Appendix is dilated measuring up to 1.5 cm and contains hyperdense contents proximally adjacent to the cecum suggesting stone impaction. No associated perforation or collections are identified.Constellation of findings are consistent with acute appendicitis. Bilateral hydroceles. Otherwise pelvic contents unremarkable. No suspicious osseous lesions or acute fracture. No acute soft tissue pathology. IMPRESSION: Acute appendicitis associated with appendicolith and no associated perforations or collections. Descending colonic diverticulosis with mild associated fat stranding could reflect developing diverticulitis. This document has been electronically signed by: Dada Garcia MD on 12/16/2024 07:47:08
[2024-12-16 02:49] LABS: Hematocrit 40.0 % (42.0-52.0); Hemoglobin 13.5 g/dl (14.0-18.0); Imm Gran Abs Auto 0.05 X10*3/uL (0.00-0.03); Imm Gran Pct Auto 0.3 % (0.0-0.4); Lymphocytes Absolute Auto 2.4 X10*3/uL (1.2-4.9); MANUAL DIFF FLAG NO; Mean Corpuscular HGB Conc 33.8 g/dl (31.0-36.0); Mean Corpuscular Hemoglobin 31.3 pg (27.0-33.0); Mean Corpuscular Volume 92.6 fL (80.0-98.0); NRBC Abs Auto 0.000 X10*3/uL (0.0-0.012); NRBC Pct Auto 0.0 /100WBC (0.0-0.2); Platelet Count 240 X10*3/uL (160-400); Red Blood Count 4.32 X10*6/uL (4.60-5.80); White Blood Count 16.7 X10*3/uL (4.8-10.8)
--- OUTSIDE RECORDS SUMMARY | 2024-12-16 02:55 | XMS_ITS | Clinical Summary ---
Author Organization [facility] Address [address] [place] [address] Care Team Providers Care Plaster Caster Name Role Phone Pcp, No MD Primary Care Provider Unavailabl e Allergies No known active allergies Medications lisinopriL (PRINIVIL) 20 mg tablet daily. 3 Active oxyCODONE (Roxicodone) 5 mg immediate release tablet Take 5 mg by mouth every 4 (four) hours as needed for moderate pain (4-7) for up to 8 doses. 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 (06/09/2022): Added automatically from request for surgery [id number] Social History Tobacco Use Types Packs/Day Years Used Date Smoking Tobacco: Former Cigarettes Q uit: 04/2022 Smokeless Tobacco: Never Alcohol Use Standard Drinks/Week Comments Not Currently 0 (1 standard drink = 0.6 oz pur e alcohol) Sex and Gender Information Value Date Recorded Sex Assigned at Not on file Legal Sex Male 4:00 AM EST Gender Identity Not on file Sexual Orientation [place] 05/18/2022 12 :44 PM EDT Last Filed Vital Signs Vital Sign Reading Time Taken Comments Blood Pressure 157/76 05/16/2023 9:54 AM EDT Pulse 67 05/16/2023 9:54 AM EDT Temperature 36.2 C (97.2 F) 06/17/2022 2:15 PM EDT Respiratory Rate 13 06/17/2022 2:15 PM EDT Oxygen Saturation 96% 06/17/2022 2:20 PM EDT Inhaled Oxygen Concentration - - Weight 67.9 kg (149 lb 12.8 oz) 05/16/2023 9:54 AM EDT Height 167.6 cm (5' 5.98 ) 05/16/2023 9:54 AM ED T Body Mass Index 24.19 05/16/2023 9:54 AM EDT Plan of Treatment Health Maintenance Due Date Last Done Comments CT Colonography 1955 Colonoscopy 1955 Colorectal Cancer Screening 1955 FIT-DNA (Cologuard) 1957 FIT 1957 FOBT 1957 Flex Sigmoidoscopy - 5y 1957 HIV Screening 1955 Medicare Annual Wellness (AWV) 1955 Hepatitis C Screening 08/16/1975 Zoster Vaccines (1 of 2) 08/16/2007 COVID-19 Vaccine ( season) 2024 11/30/2021, 12/29/2020, 03/19/2020, Additional history exists Influenza Vaccine (#1) 2024 , 11/21/2022, 11/18/2021 DTaP,Tdap,and Td Vaccines (3 - Td or Tdap) 11/21/2033 11/22/2023, 04/19/2011 Pneumococcal Vaccine, 50+ Years Completed 11/21/2022, 11/18/2021, 09/02/2015 HPV Vaccines Aged Out No longer eligi ble based on patient's age to complete this topic Hepatitis A Vaccines Aged Out No long er eligible based on patient's age to complete this topic MMR Vaccines Aged Out No longer eligi ble based on patient's age to complete this topic Meningococcal Vaccine Aged Out No jodi tanya eligible based on patient's age to complete this topic Insurance [employer]ED MEDICARE Advance Directives For more information, please contact: [phone] Documents on File Type Date Recorded Patient General Maintenance Technician Expl anation Advance Directives 06/17/2022 10:20 AM Care Teams Plaster Caster Relationship Specialty Start Date End Date PcpEstelle MD [address] [place] [address] PCP - General Internal Medicine 06/22/18
--- OUTSIDE RECORDS SUMMARY | 2024-12-16 02:55 | XMS_ITS ---
Author Name [facility] Organization Unknown History of Medication Use Medication Directions Dispensed Refills Start Date End Date Stat us oxyCODONE (Roxicodone) 5 mg immediate release tablet Take 5 mg by mouth every 4 (four) hours as needed for moderate pain (4-7) for up to 8 doses. 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 ProblemAct [facility] Encounters Encounter Type Encounter Reason Primary Diagnosis Location Date Ambulatory Malignant neoplasm o f mouth, unspecified Malignant neoplasm of mouth, unspecified [facility] 05/16/2023 Ambulatory Malignant neoplasm o f mouth, unspecified Malignant neoplasm of mouth, unspecified [facility] 11/15/2022 Ambulatory Malignant neopla sm of mouth, unspecified [facility] 07/01/2022 Ambulatory Malignant neopla sm of mouth, unspecified [facility] 05/25/2022 Care Team Organization Name Specialty Phone Email Start Date End Da te [facility] PCP,No Primary Care 05/25/202203/2023 [facility] NO PCP Primary Care 05/25/202206/2022 [facility] Tania Morton Primary Care 12/28/2021 10/09/2023
--- OUTSIDE RECORDS SUMMARY | 2024-12-16 02:55 | XMS_ITS | Clinical Summary ---
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 30 each 11 4 01/29/20 25 Active nicotine (Nicoderm CQ) 21 mg/24 hrIndications:Smok ing Place 1 patch on the skin 1 (one) time each day at the same time. Use one patch of 21 mg daily for 6 weeks 42 each 4 Active nicotine (Nicoderm CQ) 14 mg/24 hrIndications:Smok ing Place 1 patch on the skin 1 (one) time each day at the same time for 14 days. After finishing the 21 mg patches; start one patch of 14 mg daily for 14 days 14 each 4 Active nicotine (Nicoderm CQ) 7 mg/24 hrIndications:Smok ing Place 1 patch on the skin 1 (one) time each day at the same time for 14 days. After finishing the 14 mg patches; start one patch of 7 mg daily for 14 days 14 each 4 Active lisinopriL (PRINIVIL,ZESTRIL) 20 mg tablet Take 1 tablet (20 mg total) by mouth 1 (one) time each day. 90 tablet 3 5 Active aspirin 81 mg chewable tablet Chew 1 tablet (81 mg total) 1 (one) time each day. Active sildenafiL (VIAGRA) 100 mg tablet Take 1 tablet (100 mg total) by mouth if needed for erectile dysfunction. 10 tablet 3 5 Active Active Problems Problem Noted Date Diagnosed Date Pure hypercholesterolemia 07/16/2024 Assessment & Plan (07/16/2024 6:11 PM EDT): The patient has a history of hyperlipidemia. He also has a history of mild coronary artery calcifications. The patient was started on rosuvastatin 10 mg orally daily. With this therapy, the LDL was found to be 51 on his recent lipid panel. Therefore, his LDL is at target. Will continue his current therapy. Coronary artery calcification 01/29/2024 Assessment & Plan (07/16/2024 6:11 PM EDT): The patient was found to have mild coronary artery calcifications on a previous chest CT scan done in November 2023. The patient denies any anginal symptoms. He was started on rosuvastatin for cholesterol control which has led to a significant improvement in his LDL levels. He will be started on aspirin 81 mg orally daily for primary prevention. No need for antianginal agents at this point given the absence of any anginal symptoms. No need for stress testing at this point given that the patient is currently asymptomatic from a cardiac standpoint. Assessment & Plan (01/29/2024 3:44 PM EST): The patient underwent a lung cancer surveillance chest CT scan in November 2023. The study described the presence of mild coronary artery calcifications. His last lipid panel from May 2023 noted an LDL of 113. Given his coronary artery calcifications, his LDL target is 70 or below. As such, patient should be started on statin therapy. The patient is agreeable to this. Will start the patient on rosuvastatin 10 mg orally daily. Will request for the patient to complete a follow-up lipid panel in 8 weeks to make sure that his LDL is controlled after the introduction of the low-dose rosuvastatin. Orders: rosuvastatin (CRESTOR) 10 mg tablet; Take 1 tablet (10 mg total) by mouth 1 (one) time each day. Comprehensive metabolic panel; Future Lipid panel with reflex to direct LDL; Future Preop cardiovascular exam 01/29/2024 Assessment & Plan (01/29/2024 3:44 PM EST): The patient is currently being considered for cataract surgery. A cataract surgery is considered to be a low risk noncardiac procedure. Currently, the patient is asymptomatic from a cardiac standpoint. His baseline EKG obtained today in our office showed a normal sinus rhythm and no significant abnormalities. The patient has at least an average functional capacity based on his usual activities. As such, no further cardiac testing is needed at this point. The patient should proceed with the proposed cataract surgery as planned. According to the revised cardiac risk index, the patient has a low cardiac risk while undergoing the proposed low risk noncardiac surgery procedure. Cigarette smoker 01/29/2024 Assessment & Plan (07/16/2024 6:11 PM EDT): The patient has a history of chronic cigarette smoking. The patient states he was able to quit smoking temporarily with the use of nicotine patches. Afterwards, he resumed smoking again. We discussed the dangers of continued smoking including development of an KY. I explained to the patient that his KY risk is increased due to his smoking and that this increased risk is independent of his current medical therapy. I also explained to the patient that continued smoking can lead to COPD and even a malignancy. The patient stated that he will try to quit smoking again. We discussed the possibility of using nicotine replacement therapy again. The patient states that he still has his patches and will try to restart the patches again in order to quit smoking. Assessment & Plan (01/29/2024 3:44 PM EST): The patient has been smoking cigarettes since age 1972. He is currently smoking 10 to 14 cigarettes/day. During today's visit, we had an extensive conversation regarding the importance of quitting smoking. We discussed the role of smoking in the development of CAD and PAD. We also discussed that smoking is associated with an increased risk of KY, cancer and stroke. The patient is willing to try to stop smoking. We discussed the possible role of nicotine replacement therapy. The patient states that he has had the most success with nicotine patches in the past. As such, the patient is willing to trial nicotine patches. Will start with a nicotine patch of 21 mg every day for 6 weeks. Then, the patient will decrease the dose of the nicotine patch to 14 mg patch every day for 2 weeks. Then, the patient will decrease the dose of the nicotine patch to 7 mg every day for 2 weeks. I gave him written instructions regarding the appropriate use of the nicotine patch and the dose sequence. Orders: nicotine (Nicoderm CQ) 21 mg/24 hr; Place 1 patch on the skin 1 (one) time each day at the same time. Use one patch of 21 mg daily for 6 weeks nicotine (Nicoderm CQ) 14 mg/24 hr; Place 1 patch on the skin 1 (one) time each day at the same time for 14 days. After finishing the 21 mg patches; start one patch of 14 mg daily for 14 days nicotine (Nicoderm CQ) 7 mg/24 hr; Place 1 patch on the skin 1 (one) time each day at the same time for 14 days. After finishing the 14 mg patches; start one patch of 7 mg daily for 14 days Abnormal EKG 01/26/2024 Vitamin D deficiency 05/23/2023 Prediabetes 11/13/2020 Assessment & Plan (07/17/2024 11:25 AM EDT): Orders: Hemoglobin A1c; Future Osteoarthritis 12/04/2018 Overview (12/15/2023): Thoracic Spine Chronic obstructive airway d isease with asthma ([facility] V24, [facility] V28) 08/17/2017 Hypertension 08/17/2017 Assessment & Plan (07/17/2024 11:25 AM EDT): Assessment & Plan (07/16/2024 6:11 PM EDT): The patient has a history of arterial hypertension. The patient's blood pressure today was noted to be well controlled. We'll continue the current antihypertensive medication regimen. Tubular adenoma 08/17/2017 Overview (12/15/2023): 01/2014 CN, Repeat 5 yrs ED (erectile dysfunction) 06/06/2017 Resolved Problems Problem Noted Date Diagnosed Date Resolved Date Aortic atherosclerosis ([facility] V24) 12/04/2018 01/29/2024 Encounters Date Type Department Care Team Description 11/26/2024 7:29 AM EDT - 11/26/2024 11:59 PM EDT Hospital Encounter [facility] CT Scan [address] [place] [address] Encounter for screening for lung cancer; Cigarette smoker Discharge Disposition: Home or Self Care 11/06/2024 Telephone Lung Screening Program - [place] [address] [facility] [address] [place] [address] Sheri Bob MD from Last 3 Months Immunizations Immunization Administration Dates Next Due Hepatitis B (Dklfrdb-Q-Dvcir , Recombivax HB-Adult) 19yo and older 09/26/2019 Influenza Quadravalent, MDCK , 0.5ml, preservative free (Flucelvax) 6mo and older 11/18/2021 Influenza trivalent, 0.5mL ( Fluad) 65yo and older 11/22/2023,11/21/2022 Moderna (age 6mo & older) Bi valent, COVID-19, 0.5 mL or 0.25 mL dosage 11/30/2021 Moderna SARS-CoV-2 COVID-19, mRNA, LNP-S, preservative free 12/29/2020,03/19/2020,02/19/2020 Pneumococcal conjugate 13 va lent (Prevnar 13, PCV13) 2mo and older 09/02/2015 Pneumococcal conjugate 20 va lent (Prevnar 20, PCV 20) 2mo and older 11/21/2022 Pneumococcal polysaccharide 23 valent (Pneumovax 23) 2yo and older 11/18/2021 Tdap Tetanus diptheria acell ular pertussis (Boostrix; Adacel) 7yo and older 11/22/2023,04/19/2011 Surgical History Surgery Date Site/Laterality Comments HEMORRHOID SURGERY PROCEDURE: DESTRUCTION OF HEMORRHOIDS COLONOSCOPY 02/05/2014 PROCEDURE: HISTORICAL COLONOSCOPY; COMMENT: Colon Polyps. Repeat 5 yrs EYE SURGERY Bilateral cataracts 2024, Dr. Bowens Medical History Medical History Date Comments Chronic obstructive airway d isease with asthma (CMS/HCC V24, CMS/HCC V28) 08/17/2017 DX:Chronic obstructive airwa y disease with asthma (HCC) ED (erectile dysfunction) 06/06/2017 DX:ED (erectile dysfunction) Hypertension 08/17/2017 DX:Hypertension Aortic atherosclerosis (CMS/HCC V24) 12/04/2018 DX:Aortic atherosclerosis (HCC) CAD (coronary artery disease) 12/04/2018 DX :CAD (coronary artery disease) Osteoarthritis 12/04/2018 DX:Osteoarthriti s; COMMENT: Thoracic Spine Tubular adenoma 08/17/2017 DX:Tubular adeno ma; COMMENT: 01/2014 CN, Repeat 5 yrs Tobacco abuse disorder DX:Tobacc o abuse disorder Prediabetes DX:Prediabetes Vitamin D deficiency DX:Vitamin D deficiency Family History Medical History Relation Name Comments No Known Problems Father No Known Problems Mother Relation Name Status Comments Father Mother Social History Tobacco Use Types Packs/Day Years Used Date Smoking Tobacco: Every Day Cigarettes Smokeless Tobacco: Never Tobacco Cessation:Ready to Q uit: Not Asked; Counseling Given: Not Answered Alcohol Use Standard Drinks/Week Comments Not Currently 1 (1 standard drink = 0.6 oz pur e alcohol) Housing Instability Answer Date Recorde d Are you worried that in the next 2 months you may not have stable housing? No 07/10/2024 Food Access & Nutrition Answer Date Rec orded Do you have access to a vari ety of food including fruits and vegetables? Yes 07/10/2024 Access to Healthcare Answer Date Record ed Within the last 3 months, ho w many times did you visit the emergency department for your medical care? 0 07/10/2024 Health Literacy Answer Date Recorded How often do you need to hav e someone help you when you read instructions, pamphlets, or other written material from your doctor or pharmacy? Never 07/10/2024 Caregiver: How often do you need to have someone help you when you read instructions, pamphlets, or other written material from your doctor or pharmacy? Not on file 07/10/2024 Financial Risk Answer Date Recorded How hard is it for you to pa y for the very basics like food, housing, medical care, and air conditioning / heating? Hard 07/10/2024 Transportation Answer Date Recorded Has the lack of transportati on kept you from meetings, work, or from getting things needed for daily living? No Has the lack of transportati on kept you from medical appointments or from getting medications? No 07/10/2024 Social Isolation Answer Date Recorded How often do you feel lonely or isolated from th ose around you? Never 07/10/2024 Food Risk Answer Date Recorded Within the past 12 months we worried whether our food would run out before we got money to buy more. Never true 07/10/2024 Within the past 12 months th e food we bought just didn't last and we didn't have money to get more. Never true 07/10/2024 Dependent Care Answer Date Recorded Do you need help finding or paying for care for your loved ones. For example, child's nurse or elderly care for an older adult? No 07/10/2024 Education Answer Date Recorded Do you think completing more education or training, like finishing a GED, going to college, or learning a trade, would be helpful for you? No 07/10/2024 Employment and Income Answer Date Recor ded During the last four weeks, have you been actively looking for work? No 07/10/2024 Living Situation Answer Date Recorded What is your living situation? Unrecognized valu e 07/10/2024 Sex and Gender Information Value Date Recorded Sex Assigned at Male 11/25/2024 2:57 PM EDT Legal Sex Male 1:03 AM EST Gender Identity Male 11/25/2024 2:57 PM EDT Sexual Orientation Not on file Obstetrics History Last Filed Vital Signs Vital Sign Reading Time Taken Comments Blood Pressure 110/67 07/17/2024 11:22 AM EDT Pulse 73 07/17/2024 11:09 AM EDT Temperature 37 C (98.6 F) 07/17/2024 11:09 AM EDT Respiratory Rate - - Oxygen Saturation 97% 07/17/2024 11:09 AM EDT Inhaled Oxygen Concentration - - Weight 69.6 kg (153 lb 6.4 oz) 07/17/2024 11:09 AM EDT Height 165.1 cm (5' 5 ) 07/17/2024 11:09 AM EDT Body Mass Index 25.53 07/17/2024 11:09 AM EDT Plan of Treatment Upcoming Encounters Date Type Department Care Team (Late st Contact Info) Description 01/17/2025 10:45 AM EST Office Visit Internal Medicine - [address] [place] [address] Tania Morton PA [address] [facility] [address] [place] [address] Health Maintenance Due Date Last Done Comments RSV Immunization Adult Patients (1 - Risk 50-74 years 1-dose series) 08/16/2007 Hepatitis B Vaccines (2 of 3 - 19+ 3-dose series) 10/24/2019 09/26/2019 Abdominal Aortic Aneurysm (AAA) Screen 01/29/2022 Zoster Vaccines (2 of 2) 08/30/2024 07/05/2024 COVID-19 Vaccine (6 - Moderna risk season) 2024 01/04/2024, 11/30/2021, 12/29/2020, Additional history exists Influenza Vaccine (#1) 2024 , 11/21/2022, 11/18/2021, Additional history exists Hypertension/CHF/CAD Annual BMP Blood Test 07/09/2025 07/09/2024, 01/16/2024, 05/22/2023 Social Influencers of Health Screening 07/10/2025 07/10/2024 Falls Risk Assessment 07/17/2025 07/17/2024 Medicare Annual Wellness Visit 07/17/2025 07/17/2024 Cholesterol Screening (Lipid Panel) 07/09/2029 07/09/2024, 05/22/2023 Colorectal Cancer Screening: Colonoscopy 02/02/2032 02/01/2022 DTaP,Tdap,and Td Vaccines (3 - Td or Tdap) 11/21/2033 11/22/2023, 04/19/2011 Hepatitis C Screening Completed 09/06/2019 Pneumococcal Vaccine: 50+ Years Completed 11/21/2022, 11/18/2021, 09/02/2015 Depression Screening Completed 07/17/2024 HIB Vaccines Aged Out No longer eligi ble based on patient's age to complete this topic HPV Vaccines Aged Out No longer eligi ble based on patient's age to complete this topic Hepatitis A Vaccines Aged Out No long er eligible based on patient's age to complete this topic IPV Vaccines Aged Out No longer eligi ble based on patient's age to complete this topic MMR Vaccines Aged Out No longer eligi ble based on patient's age to complete this topic Meningococcal ACWY Vaccine Aged Out N o longer eligible based on patient's age to complete this topic Meningococcal B Vaccine Aged Out No l onger eligible based on patient's age to complete this topic RSV Immunization Patients Under 20 months Aged Out No longer eligible based on patient's age to complete this topic Varicella Vaccines Aged Out No longer eligible based on patient's age to complete this topic Procedures Procedure Name Priority Date/Time Associated Diagnosis Comments CT LUNG SCREENING Routine 11/26/2024 7:4 3 AM EDT Encounter for screening for lung cancer Cigarette smoker COMPREHENSIVE METABOLIC PANEL Routine 07/09/2024 8:22 AM EDT Coronary artery calcification LIPID PANEL WITH REFLEX TO DIRECT LDL Routine 07/09/2024 8:22 AM EDT Coronary artery calcification HM HEPATITIS C SCREENING Routine 09/06/2019 from Last 3 Months or Most Recently Relevant to Health Maintenance Results * CT Lung Screening (11/26/2024 7:43 AM EDT) Anatomical Region Laterality Modality Chest Computed Tomogra phy 12/04/2024 10:0 6 AM EDT Impressions 12/04/2024 11:03 AM EDT No new or suspicious pulmonary nodules. Lung RADS 2-benign. Recommend continued screening with low-dose chest CT in 12 months. -------- FINAL REPORT -------- Dictated By: SUE SOTOMAYOR Dictated Date: 12/04/2024 10:06 ET Assigned Physician: SUE SOTOMAYOR Reviewed and Electronically Signed By: SUE SOTOMAYOR Signed Date: 12/04/2024 11:03 ET Workstation ID: [id number] Transcribed By: Self Edit Transcribed Date: 12/04/2024 10:06 ET Narrative 12/04/2024 11:03 AM EDT PROCEDURE: Chest CT INDICATION: Low dose lung cancer screening. 72 pack year smoking history. Current smoker TECHNIQUE: Chest CT without contrast. Multi planar reformats were created and interpreted. The examination was performed utilizing dose reduction techniques. Total DLP 183 COMPARISON: 11/26/2023 FINDINGS: LUNGS/PLEURA: Central airways are patent. Mild emphysema. Chronic bronchitis. Scattered foci of linear scarring throughout the lungs. 4 mm semisolid nodule in the lingula is stable compared to prior. 1 mm nodule in the left lower lobe along the fissure is stable compared to prior. No new or suspicious pulmonary nodules. No pleural effusion or pneumothorax. MEDIASTINUM: Thyroid gland is unremarkable. No mediastinal or hilar lymphadenopathy. Cardiac chambers are normal in size. No pericardial effusion. Mild coronary artery calcifications. Esophagus is normal. CHEST WALL: No axillary lymphadenopathy or superficial hematoma. UPPER ABDOMEN:Multiple hepatic cysts. BONES: No acute fracture. Scattered degenerative changes seen throughout the bones. Procedure Note Sue Sotomayor MD - 12/04/2024 PROCEDURE: Chest CT INDICATION: Low dose lung cancer screening. 72 pack year smoking history.Current smoker TECHNIQUE: Chest CT without contrast. Multi planar reformats were createdand interpreted. The examination was performed utilizing dose reductiontechniques. Total DLP 183 COMPARISON: 11/26/2023 FINDINGS: LUNGS/PLEURA: Central airways are patent. Mild emphysema. Chronicbronchitis. Scattered foci of linear scarring throughout the lungs. 4 mmsemisolid nodule in the lingula is stable compared to prior. 1 mm nodulein the left lower lobe along the fissure is stable compared to prior. Nonew or suspicious pulmonary nodules. No pleural effusion orpneumothorax. MEDIASTINUM: Thyroid gland is unremarkable. No mediastinal or hilarlymphadenopathy. Cardiac chambers are normal in size. No pericardialeffusion. Mild coronary artery calcifications. Esophagus is normal. CHEST WALL: No axillary lymphadenopathy or superficial hematoma. UPPER ABDOMEN:Multiple hepatic cysts. BONES: No acute fracture. Scattered degenerative changes seen throughoutthe bones. IMPRESSION: No new or suspicious pulmonary nodules. Lung RADS 2-benign. Recommendcontinued screening with low-dose chest CT in 12 months. -------- FINAL REPORT -------- Dictated By: SUE SOTOMAYOR Dictated Date: 12/04/2024 10:06 ET Assigned Physician: SUE SOTOMAYOR Reviewed and Electronically Signed By: SUE SOTOMAYOR Signed Date: 12/04/2024 11:03 ET Workstation ID: [id number] Transcribed By: Self Edit Transcribed Date: 12/04/2024 10:06 ET us Sheri Bob MD IMG CT PROCEDURES Final Result * Lipid panel with reflex to direct LDL (07/09/2024 8:22 AM EDT) Cholesterol 120 0 - 200 mg/dL LAB CHEMISTRY METHOD 07/09/2024 10:28 AM EDT [facility] Triglycerides 58 0 - 150 mg/dL LAB CHEMISTRY METHOD 07/09/2024 10:28 AM EDT [facility] HDL 57 >=40 mg/dL LAB CHEMISTRY METHOD 07/09/2024 10:28 AM EDT [facility] LDL Calculated 51 0 - 100 mg/dL LAB CHEMISTRY METHOD 07/09/2024 10:28 AM EDT [facility] VLDL Cholesterol Herminio 11.6 mg/dL LAB CHEMISTRY METHOD 07/09/2024 10:28 AM EDT [facility] Non HDL Chol. (LDL+VLDL) 63 <145 mg/dL LAB CHEMISTRY METHOD 07/09/2024 10:28 AM EDT [facility] Chol/HDL Ratio 2.1 0.0 - 4.4 LAB CHEMISTRY METHOD 07/09/2024 10:28 AM EDT [facility] Blood Venous blood specimen / Unknown Venipuncture / Unknown 07/09/2024 8:22 AM EDT 07/09/2024 8:22 AM EDT us Yohan Segura MD LAB BLOOD ORDERABLES F inal Result [facility] [address] [place] [address], * (ABNORMAL) Comprehensive metabolic panel (07/09/2024 8:22 AM EDT) Sodium 142 133 - 145 mmol/L LAB CHEMISTRY METHOD 07/09/2024 10:28 AM [facility] Potassium 4.6 3.5 - 5.5 mmol/L LAB CHEMISTRY METHOD 07/09/2024 10:28 AM [facility] Chloride 110 96 - 110 mmol/L LAB CHEMISTRY METHOD 07/09/2024 10:28 AM [facility] CO2 27 21 - 32 mmol/L LAB CHEMISTRY METHOD 07/09/2024 10:28 AM [facility] Anion Gap 5 3 - 11 LAB CHEMISTRY METHOD 07/09/2024 10:28 AM [facility] Glucose 110(H) 70 - 100 mg/dL LAB CHEMISTRY METHOD 07/09/2024 10:28 AM [facility] BUN 11 5 - 25 mg/dL LAB CHEMISTRY METHOD 07/09/2024 10:28 AM [facility] Creatinine 0.90 0.70 - 1.30 mg/dL LAB CHEMISTRY METHOD 07/09/2024 10:28 AM [facility] eGFR 94 >=60 mL/min/1. 73m2 LAB CHEMISTRY METHOD 07/09/2024 10:28 AM [facility] Comment:Calculation based on the Chronic Kidney Disease Epidemiology Collaboration (CKD-EPI) equation refit without adjustment for race. BUN/Creatinine Ratio 12.2 LAB CHEMISTRY METHOD 07/09/2024 10:28 AM [facility] Calcium 8.9 8.5 - 10.5 mg/dL LAB CHEMISTRY METHOD 07/09/2024 10:28 AM [facility] AST (SGOT) 17 10 - 42 unit/L LAB CHEMISTRY METHOD 07/09/2024 10:28 AM [facility] ALT (SGPT) 28 10 - 60 unit/L LAB CHEMISTRY METHOD 07/09/2024 10:28 AM [facility] Alkaline Phosphatase 63 42 - 121 unit/L LAB CHEMISTRY METHOD 07/09/2024 10:28 AM EDT [facility] Total Protein 7.1 6.0 - 8.0 g/dL LAB CHEMISTRY METHOD 07/09/2024 10:28 AM EDT [facility] Albumin 3.9 3.2 - 5.0 g/dL LAB CHEMISTRY METHOD 07/09/2024 10:28 AM EDT [facility] Total Bilirubin 0.5 0.0 - 1.4 mg/dL LAB CHEMISTRY METHOD 07/09/2024 10:28 AM EDT [facility] Blood Venous blood specimen / Unknown Venipuncture / Unknown 07/09/2024 8:22 AM EDT 07/09/2024 8:22 AM EDT Yohan Segura MD LAB BLOOD ORDERABLES F inal Result [facility] [address] [place] [address], * Hepatitis C Screening (09/06/2019) Hepatitis C Screening abstracted Historical Provider HEALTH MAINTENANCE Final Result from Last 3 Months or Most Recently Relevant to Health Maintenance Insurance [facility] MEDIC[facility] Care Teams Shell Plater Relationship Specialty Start Date End Date Tania Morton PA [address] [address] PCP - General Internal Medicine 09/04/19
--- OUTSIDE RECORDS SUMMARY | 2024-12-16 02:55 | XMS_ITS | Data Portability ---
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 Fiberoptic examination of nasopharynx, hypopharynx and larynx was stable. Cancer surveillance in 6 months was recommended. [email or web address] Not available 09/16/2024 11:03:26 Plan of Treatment Reminders Order Date Submit Date Provider Last Modified By Organization Details Last Modified Time Details Appointments Establish ed 15 2025 10:15A M DEJAH KNAPP MD Not available Not available Not available Lab None recorded. Referral None recorded. Procedures None recorded. Surgeries None recorded. Imaging None recorded. Medication Orders None recorded. Patient TargetsNo targets recorded. Patient InstructionsNo instructions recorded. Reason for Referral None Reported. Problems Name Problem SNOMED Code Status Onset Date Resolution Date Notes Provider Name and Address Organization Details Recorded Time Lesion of tongue 252113695 Active 025 DEJAH KNAPP MD [address] [address], [place], [phone], [place] - [facility] 5 11:03:12 Cigarette smoker [id number] Active 025 DEJAH KNAPP MD [address],[facility] [address], [place], [phone], [place] - [facility] 5 11:03:43 Problem Notes None recorded. Procedures Surgical History Date Name Laterality Status Provider Name and Address Organization Details Recorded Time 09/16/2024 FOL_DP completed DEJAH KNAPP MD [address] [place] [address], [phone], [place] - [facility] 09/16/2024 10:57:28 Imaging Results None recorded. Procedure Notes None recorded. Medical Equipment None Reported. Medications Name Sig Start Date Stop Date Status Note LastModified by Organization Details LastModified Time nicotine 14 mg/24 hr daily transdermal patch 09/16 completed Not Available Not Available Not Available sildenafil 100 mg tablet TAKE 1 TABLET IF NEEDED FOR ERECTILE DYSFUNCTI ON. active Not Available Not Available No t Available ketorolac 0.5 % eye drops 09/16 completed Not Available Not Available Not Available nicotine 21 mg/[address] 1 PATCH ONTHE SKIN ONCE A DAY AT THE SAME TIME EACH DAY .USE ONE PATCH OF 21 MG DAILY FOR 6 WEEKS active Not Available Not Available No t Available timolol maleate 0.5 % eye drops INSTILL 1 DROP IN BOTH EYES IN THE MORNING active Not Available Not Available No t Available nicotine 7 mg/[address]dermal patch [address] 1 PATCH TOPICALLY TO SKIN ONCE DAILY FOR 14 DAYS . START THIS AFTER FINISHING 14MG PATCHES active Not Available Not Available No t Available rosuvastati n 10 mg tablet active Not Available Not Available Not Available lisinopril active Not Available Not Av ailable Not Available Vitals Date Recorded Body weight Body mass index (BMI) Body height Provider Name and Address Organization Details Last Updated DateTime 09/16/2024 49103.59 g 22 kg/m2 180.34 cm [facility] [place] [facility] 09/16/2024 10:45:03 Social History None recorded. Functional Status None recorded. Mental Status None recorded. Family History Nothing Reported. Medical History No medical history recorded. Past Encounters Encounter ID Performer Location Encounter Start Date Encounter Closed Date Diagnosis/Indication Diagnosis SNOMED-CT Code Diagnosis ICD10 Code Diagnosis IMO Codes Diagnosis Note [id number] DEJAH KNAPP MD [facility] [address] [phone] 09/16/2024 10:13:22 09/16/2024 11:03:02 Lesion of tongue 730011011 K14.8 [id number] will request records from his previous cancer team in [facility] Cigarette smoker [id number] 7 F17.210 [id number] smoking cessation highly recommende d Health Concerns Section Related Observation LastModified by Organization Detai ls LastModified Time None Recorded Concern Status LastModified by Organization Details LastModified Time None Recorded Advance Directives Directive None Recorded Payers Insurance Date Sequence Insurance Name Policy Number Policy Lewis Covered Member ID Lewis Member ID Guarantor Name 09/16/[address] [facility] (MEDICARE REPLACEMENT/A DVANTAGE - PPO) [id number] Salvador Geronimo [id number] Salvador Geronimo Notes Date Note Type Note Provider Name and Address Organization Details Recorded Time 09/16/2024 text/html Tumor location: Left tongue lesion, non malignantTreatment: surgeryCompletion: ncology team: [facility] ENT Dr Juliette Rodriguez initially noted asymptomatically by dental teamcurrently no symptomstobacco - 1ppdno hemoptysis DEJAH KNAPP MD [address] [place] [address], [phone], [place] - [facility] 09/16/2024 11:04:10
[2024-12-16 03:05] LABS: Alanine Aminotransferase 24 U/L (0-40); Albumin Level 4.3 g/dL (3.5-5.0); Alkaline Phosphatase 61 U/L (39-117); Anion Gap 13 (12-20); Aspartate Amino Transferase 30 U/L (5-37); Blood Urea Nitrogen 13 mg/dL (9-16); Calcium 8.9 mg/dL (8.4-10.2); Carbon Dioxide 23 mmol/L (22-29); Chloride 109 mmol/L (96-108); Creatinine Clr Calc Pharmacy 81.8; Estimated Glomerular Filt Rate > 60; Lipase 23 U/L (8-78); Potassium 3.9 mmol/L (3.3-5.1); Sodium 141 mmol/L (135-145); Total Protein 6.9 g/dL (6.5-8.0)
--- NOTE | 2024-12-16 04:18 | ED.ABDPAIN ---
HPI - Abdominal Pain General Chief Complaint: Abdominal Pain Stated Complaint: stomach pain Time Seen by Provider: 12/16/24 03:50 Source: patient Mode of arrival: ambulatory Limitations: no limitations History of Present Illness ED Provider: Aurelio WOODALL HPI narrative: The patient is a 69-year-old male with a history of hypertension, hyperlipidemia, and previous episode of diverticulitis in 2021 which was managed conservatively. Patient denies any surgical abdominal history. Patient reports around 14:00 today he began experiencing left lower quadrant abdominal pain without radiation or associated nausea, vomiting, diarrhea, fever/chills, recent sick contacts, or recent trauma. The patient reports symptoms feel similar to his previous episode of diverticulitis. Related Data Home Medications ?Medication ?Instructions ?Recorded ?Confirmed lisinopril 20 mg tablet 1 tab PO DAILY 06/22/21 06/22/21 Previous Rx's ?Medication ?Instructions ?Recorded amoxicillin 500 mg-potassium 1 tab PO BID #14 tabs 06/25/21 clavulanate 125 mg tablet (Augmentin) docusate sodium 100 mg capsule 100 mg PO BID #60 caps 06/25/21 (Colace) Allergies Allergy/AdvReac Type Severity Reaction Status Date / Time No Known Allergies Allergy Verified 12/16/24 02:31 Review of Systems Review of Systems Yes all other systems are reviewed and are negative PMFSH Social History Social History (Reviewed 06/23/21 @ 08:01 by Arnaldo Berry MD, MERGED WITH [facility]) Household Members: Spouse Housing: House Alcohol intake: current Alcohol intake frequency: does not drink Alcohol type: beer Patient Tobacco Use Status: Current everyday Tobacco user Tobacco use type: Cigarette Smoked in Last 30 Days: No e-Cigarette/Vaping Use: Never Used Second Hand Smoke Exposure: No Use of substances other than those prescribed or required for medical reasons: No Advance Directives: No Advance Directives Information Provided: No Do you have a plan to hurt others: No Plan service: Yes Current occupational status: retired Physical Exam ED Vital Signs: Vital Signs - 24 hr 12/16/24 02:28 12/16/24 04:20 Temperature 98.6 F 99.3 F Pulse Rate 67 61 Respiratory Rate 16 16 Blood Pressure 158/59 H 137/69 Pulse Oximetry 97 97 Oxygen Delivery Method Room Air Room Air BMI result Body Mass Index 25.8 CONSTITUTIONAL: The patient appears non-toxic, well nourished and in no acute distress. Vital signs as documented. HEAD: Atraumatic, normocephalic. EYES: EOMs grossly intact, pupils equal, conjunctiva clear, no exudate. ENT: Nares patent, no discharge. Airway patent, no audible stridor, visible mucosa is pink and moist without noted lesions. NECK: Trachea is midline, no obvious masses or gross abnormalities. CHEST: Symmetric movement, normal appearance. LUNGS: LS present and CTAB, no w/r/r. Non-labored work of breathing. CARDIAC: Regular Rhythm, S1/S2 appreciated, no murmurs, rubs or gallops. ABDOMEN: Abdomen soft x4 quadrants, positive tenderness to palpation of the left lower quadrant, negative rebound, no palpable masses or organomegaly. : Deferred. EXTREMITIES: Normal tone, moves all extremities spontaneously without reported pain. No obvious acute injury or deformity noted. NEURO: Alert and oriented x3, CN II-XII appear grossly intact. Cerebellar Functioning grossly intact. No obvious sensory or motor deficits. Speech clear and appropriate. PSYCH: normal affect, appropriate eye contact, fluid speech, with appropriate response to questioning. No reported suicidality or homicidality. SKIN: Warm, dry, color appropriate, normal turgor. No rashes noted. Course Course Course Narrative: + CT scan at this time he was been NPO since 7pm. I am adding on lactic/cultures, IV zosyn and IVF, pain is well controlled. discussed case with Dr. Clemens who will evaluate the patient. at this time infection suspected Jannie Sauer, 12/16/24 [id number] Medical Decision Making Medical Decision Making [facility] Narrative: 4:39 AM 12/16/2024 (Emir WOODALL): The patient is a 69-year-old male with a history of hypertension, hyperlipidemia, and previous episode of diverticulitis in 2021 which was managed conservatively. Patient denies any surgical abdominal history. Patient reports around 14:00 today he began experiencing left lower quadrant abdominal pain without radiation or associated nausea, vomiting, diarrhea, fever/chills, recent sick contacts, or recent trauma. The patient reports symptoms feel similar to his previous episode of diverticulitis. On exam the patient has mild tenderness of the left lower quadrant, negative rebound, negative guarding. The patient overall appears nontoxic. Laboratory evaluation however reveals leukocytosis of 16.7, no significant anemia, electrolyte abnormality, or ALEXIA. LFTs are unremarkable. Lipase is normal. The patient's symptoms will be treated with IV fluid hydration, morphine, Zofran, and we will obtain a CT of the abdomen and pelvis to evaluate for repeat diverticulitis or other intra-abdominal pathology. Admission/Observation Consideration of admission/observation: Escalation of care including admission/observation considered Lab Data MDM Lab Attestation statement: I reviewed the patient's lab results. 12/16/24 02:44 12/16/24 02:44 Labs: Lab Results 12/16/24 12/16/24 Range/Units 02:44 04:38 WBC 16.7 H (4.8-10.8) X10*3/uL RBC 4.32 L (4.60-5.80) X10*6/uL Hgb 13.5 L (14.0-18.0) g/dl Hct 40.0 L (42.0-52.0) % MCV 92.6 (80.0-98.0) fL MCH 31.3 (27.0-33.0) pg MCHC 33.8 (31.0-36.0) g/dl RDW 13.5 (11.0-16.0) % Plt Count 240 D (160-400) X10*3/uL MPV 9.5 (9.4-12.4) fL Immature Gran % (Auto) 0.3 (0.0-0.4) % Neut % (Auto) 76.2 H (45-73) % Lymph % (Auto) 14.6 L (20-40) % Jackson % (Auto) 7.7 (2-11) % Eos % (Auto) 0.8 (0-4) % Baso % (Auto) 0.4 (0-2) % Lymph # (Auto) 2.4 (1.2-4.9) X10*3/uL Jackson # (Auto) 1.3 H (0.1-1.2) X10*3/uL Eos # (Auto) 0.1 (0.0-0.4) X10*3/uL Baso # (Auto) 0.1 (0.0-0.2) X10*3/uL Abs Immat Gran (auto) 0.05 H (0.00-0.03) X10*3/uL Absolute Neuts (auto) 12.7 H (2.0-8.3) x10*3/uL Absolute Nucleated RBC 0.000 (0.0-0.012) X10*3/uL Nucleated RBC % (auto) 0.0 (0.0-0.2) /100WBC Sodium 141 (135-145) mmol/L Potassium 3.9 (3.3-5.1) mmol/L Chloride 109 H (96-108) mmol/L Carbon Dioxide 23 (22-29) mmol/L Anion Gap 13 (12-20) BUN 13 (9-16) mg/dL Creatinine 0.79 (0.5-1.4) mg/dL Estim Creat Clear Calc 81.8 Estimated GFR > 60 Random Glucose 120 H (60-115) mg/dL Calcium 8.9 D (8.4-10.2) mg/dL Total Bilirubin 0.5 (0.0-1.0) mg/dL AST 30 (5-37) U/L ALT 24 (0-40) U/L Alkaline Phosphatase 61 (39-117) U/L Total Protein 6.9 (6.5-8.0) g/dL Albumin 4.3 (3.5-5.0) g/dL Lipase 23 (8-78) U/L Urine Color Yellow Urine Appearance Clear Urine pH 5.5 (5.0-9.0) Ur Specific [place] 1.010 (1.005-1.025) Urine Protein Negative (Neg-Trace) mg/dL Urine Glucose (UA) Negative (Negative) mg/dL Urine Ketones Negative (Negative) mg/dL Urine Blood Negative (Negative) Urine Nitrite Negative (Negative) Ur Leukocyte Esterase Negative (Negative) Urine RBC 0-2 (0-2) /HPF Urine WBC 0-5 (0-5) /HPF Ur Squamous Epith Cells 0-2 (0-2) /HPF Urine Bacteria None Seen (None Seen) Hyaline Casts 0-2 (0-2) /LPF Radiology Impression Discussion of test interpretation with radiology: I have reviewed the radiologist's reading. External Record Review External record reviewed: Outpatient record and Prior outpatient labs Prescription Management I considered prescription management with: Pain Medication and Antibiotic Medications Administered Discontinued Medications Generic Name Dose Route Start Last Admin Trade Name Freq PRN Reason Stop Dose Admin Sodium Chloride 1,000 mls @ 999 mls/hr 12/16/24 04:30 12/16/24 06:07 Ns IV 12/16/24 05:30 Infused .Q1H1M RAMSES Infusion Iohexol 85 ml 12/16/24 04:46 12/16/24 04:46 Iohexol 350 Mg/Ml 100 Ml Infus..Btl IV 12/16/24 04:47 85 ml ONCE ONE Administration Morphine Sulfate 4 mg 12/16/24 04:23 12/16/24 04:35 Morphine Sulfate 4 Mg/Ml Cartridge IVPUSH 12/16/24 04:24 4 mg ONCE ONE Administration Protocol Ondansetron HCl 4 mg 12/16/24 04:23 12/16/24 04:35 Ondansetron Hcl 4 Mg/2 Ml Vial IVPUSH 12/16/24 04:24 4 mg ONCE ONE Administration Discharge Plan Discharge Clinical Impression: Acute appendicitis Qualifiers: Acute appendicitis type: unspecified acute appendicitis type Qualified Code(s): K35.80 - Unspecified acute appendicitis Abdominal pain Qualifiers: Abdominal location: lower abdomen, unspecified Qualified Code(s): R10.30 - Lower abdominal pain, unspecified Elevated WBC count Qualifiers: Leukocytosis type: unspecified Qualified Code(s): D72.829 - Elevated white blood cell count, unspecified Patient Disposition: Admitted As Inpatient Print Language: Albanian
--- NOTE | 2024-12-16 04:20 | PC.NURSE ---
provider into assess pt.
--- NOTE | 2024-12-16 04:40 | PC.NURSE ---
medicated per apr, ua collected and sent.
[2024-12-16 04:43] LABS: Appearance Urine Clear; Glucose Urine UA Negative (Negative); PH 5.5 (5.0-9.0); Specific Gravity - Urine 1.010 (1.005-1.025)
[2024-12-16] MEDS: iohexoL 350 MG/ML 100 ML INFUS..BTL 85 ML IV (04:46)
--- NOTE | 2024-12-16 05:27 | PC.NURSE ---
pt taken to ct scan.
--- NOTE | 2024-12-16 06:07 | PC.NURSE ---
pt resting at this time awaiting deposition.
--- NOTE | 2024-12-16 08:14 | P.HPGS_ITS ---
History of Present Illness History of Present Illness Date of Service: 12/16/24 <Salvador Rivera PA-C - Last Filed: 12/16/24 10:37> 12/16/24 <Anthony Clemens MD - Last Filed: 12/16/24 10:49> Chief complaint: Acute Appendicitis <Salvador Rivera PA-C - Last Filed: 12/16/24 10:37> Narrative: Salvador Geronimo is a 69 year old male with a history of HTN, HLD, diverticulitis who presented to the emergency department following a 1 day history of lower abdominal discomfort. Patient states that his pain began yesterday afternoon as a generalized discomfort in the lower abdomen and continued to get worse so he decided to come to be evaluated. He denies nausea or vomiting, fever/chills. Admits to decreased appetite. he does have a history of diverticulitis and states this feels somewhat similar to that. Work up in the ED significant for leukocytosis 16.7, CT abdomen showing a dilated appendix, with visualized appendicolith, suggestive of acute appendicitis without perforation or abscess. Additionally there is a colonic diverticulosis with mild inflammatory changes suggestive of possible developing mild diverticulitis. Currently he feels as though the pain is better, but attributes this to the pain medications he received. He has been started on IV Zosyn Patient states his surgical history includes a repair of a hernia when he was an . Unsure where this hernia was. He denies any additional surgical history. He endorses smoking, about 1 PPD. occasional alcohol and marijuana use. Denies addiitonal drug use <Salvador Rivera PA-C - Last Filed: 12/16/24 10:37> [facility] Social History Social History: Social History Household Members: Spouse Housing: House Alcohol intake: current Alcohol intake frequency: does not drink Alcohol type: beer Patient Tobacco Use Status: Current everyday Tobacco user Tobacco use type: Cigarette Smoked in Last 30 Days: No e-Cigarette/Vaping Use: Never Used Second Hand Smoke Exposure: No Use of substances other than those prescribed or required for medical reasons: No Advance Directives: No Advance Directives Information Provided: No Do you have a plan to hurt others: No Plan service: Yes Current occupational status: retired <Salvador Rivera PA-C - Last Filed: 12/16/24 10:37> Meds Allergies/Adverse reactions: Allergies Allergy/AdvReac Type Severity Reaction Status Date / Time No Known Allergies Allergy Verified 12/16/24 02:31 <Salvador Rivera PA-C - Last Filed: 12/16/24 10:37> Active Medications: Current Medications Piperacillin Sod/Tazobactam (Sod 3.375 gm/ Sodium Chloride) 50 mls @ 100 mls/hr IV ONCE ONE Stop: 12/16/24 08:17 Last Admin: 12/16/24 08:09 Dose: 100 mls/hr Lactated Ringer's (Lr) 1,000 mls @ 999 mls/hr IV .Q1H1M ONE Stop: 12/16/24 08:48 <Salvador Rivera PA-C - Last Filed: 12/16/24 10:37> Home medications: Home Medications ?Medication ?Instructions ?Recorded ?Confirmed ?Last Taken ?Type lisinopril 20 mg tablet 1 tab PO DAILY 06/22/2111/2112/15/24 07:00 History aspirin 81 mg tablet 81 mg PO DAILY 12/16/2411/2112/15/24 07:00 History rosuvastatin 10 mg tablet 10 mg PO BEDTIME 12/16/2412/14/24 History sildenafil 100 mg tablet 100 mg PO NEEDED intercou rse 12/16/24 12/16/24 Unknown History <JAMISON Crowley Last Filed: 12/16/24 10:37> Physical Exam Vital Signs: Vital Signs: Last Vital Signs Temp 99.3 F 12/16/24 04:20 Pulse 61 12/16/24 04:20 Resp 16 12/16/24 04:20 BP 137/69 12/16/24 04:20 Pulse Ox 97 12/16/24 04:20 O2 Del Method Room Air 12/16/24 04:20 BMI result Body Mass Index 25.8 <JAMISON Crowley Last Filed: 12/16/24 10:37> Const: General: comfortable and no acute distress <JAMISON Crowley Last Filed: 12/16/24 10:37> Orientation/consciousness: patient oriented x3 <JAMISON Crowley Last Filed: 12/16/24 10:37> Resp: Effort & Inspection: normal respiratory effort and able to speak in complete sentences <JAMISON Crowley Last Filed: 12/16/24 10:37> GI: Inspection: No distended <JAMISON Crowley Filed: 12/16/24 10:37> Palpation (GI): Soft to palpation and Tenderness to palpation present (GI) (tender to deep palpation of the RLQ) with no rebound tenderness and Rovsing's sign negative <Salvador Rivera PA-C Last Filed: 12/16/24 10:37> Neuro: General: patient oriented x3 <JAMISON Crowley Last Filed: 12/16/24 10:37> Results Results Labs: Short CBC 12/16/24 Range/Units 02:44 WBC 16.7 H (4.8-10.8) X10*3/uL Hgb 13.5 L (14.0-18.0) g/dl Hct 40.0 L (42.0-52.0) % Plt Count 240 D (160-400) X10*3/uL BMP 12/16/24 02:44 Sodium 141 Potassium 3.9 Chloride 109 H Carbon Dioxide 23 BUN 13 Creatinine 0.79 Calcium 8.9 D Liver Function 12/16/24 Range/Units 02:44 Total Bilirubin 0.5 (0.0-1.0) mg/dL AST 30 (5-37) U/L ALT 24 (0-40) U/L Alkaline Phosphatase 61 (39-117) U/L Albumin 4.3 (3.5-5.0) g/dL Urine 12/16/24 Range/Units 04:38 Urine Color Yellow Urine Appearance Clear Urine pH 5.5 (5.0-9.0) Ur Specific [place] 1.010 (1.005-1.025) Urine Protein Negative (Neg-Trace) mg/dL Urine Glucose (UA) Negative (Negative) mg/dL <Salvador Rivera PA-C Last Filed: 12/16/24 10:37> Assessment and Plan (1) Acute appendicitis: Qualifiers: Acute appendicitis type: unspecified acute appendicitis type Qualified Code(s): K35.80 - Unspecified acute appendicitis <Salvador Rivera PA-C - Last Filed: 12/16/24 10:37> Status: Acute <Salvador Rivera PA-C - Last Filed: 12/16/24 10:37> 69-year-old male with lower abdominal pain since yesterday afternoon He has a history of 1 episode of diverticulitis 3 years ago Current exam shows mild tenderness on the right lower quadrant on deep palpation CAT scan does suggest acute appendicitis with appendicoliths Question of mild diverticulitis in the distal descending colon - he says he is not tender on this side We will proceed with laparoscopic appendectomy, possible open He understands the technique of this procedure as was the risks, benefits, and alternatives Abdominal exam otherwise benign Seen and examined independently <Anthony Clemens MD - Last Filed: 12/16/24 10:49> 69 year old male with a history of HTN, HLD, diverticulitis who reports a 1 day history of lower abdominal discomfort that began suddenly yesterday afternoon. Describes this as discomfort and progressed throughout the remainder of the day. There was no associated nausea, vomiting, fevers. Workup in the ED significant for elevated WBC, CT scan showing dialted appendix up to 1.5 cm with appendicolith, also mild diverticulitis with associated mild inflammatory changes of the sigmoid colon. Discussed options for treatment, including surgical intervention to removed the appendix via laparoscopic appendectomy possible open. We discussed risks, benefits and alternatives to this. Patient is agreeable to this plan. Will proceed with surgery this afternoon, he has been added onto the OR schedule, time pending. For now will continue IV zosyn, fluids. Patient is NPO currently. Laparoscopic appendecotmy possible open this afternoon Continue IV zosyn IVF NPO, advance after surgery pain control ass needed. <Salvador Rivera PA-C - Last Filed: 12/16/24 10:37> Quality Stroke Does the patient have a stroke diagnosis?: No <Salvador Rivera PA-C - Last Filed: 12/16/24 10:37> VTE Prior VTE?: No <Salvador Rivera PA-C - Last Filed: 12/16/24 10:37> VTE Risk Level:: Surgical - moderate <Salvador Rivera PA-C - Last Filed: 12/16/24 10:37> VTE Device Contraindication: N/A - Device Ordered <Salvador Rivera PA-C - Last Filed: 12/16/24 10:37> VTE Drug Contraindication: Treatment Not Indicated <Salvador Rivera PA-C - Last Filed: 12/16/24 10:37> Procedures Date of Service Date of Service: 12/16/24 <Salvador Rivera PA-C - Last Filed: 12/16/24 10:37> 12/16/24 <Anthony Clemens MD - Last Filed: 12/16/24 10:49>
[2024-12-16 08:17] LABS: INTERNATIONAL NORM RATIO 1.1 (0.9-1.1); Prothrombin Time 12.5 SEC (10.9-12.4)
[2024-12-16] MEDS: Lactated Ringers 1,000 ML 999 ML IV (08:39)
--- NOTE | 2024-12-16 08:49 | HO.NURTONUR ---
69M hx hypertension, hyperlipidemia, and previous episode of diverticulitis in 2021 which was managed conservatively. Pt presented to ED 12/16 0230am with c/o LLQ/generalized abdo with no N/V/D. Pt reports episode feeling similar to previous bout of diverticulitis. WBC 16.7 CT shows acute appy with no perforation/collections. NPO plan for OR later today for lap appy #20 LAC, 1L LR running then 100ml/hr LR ordered to start after that Pt A&Ox3, independent with care.
--- NOTE | 2024-12-16 09:13 | PHA.MEDREC ---
Addendum entered by Soumya Rios RPh 12/16/24 09:20: MED REC REVIEWED BY [facility] Original Note: Pharmacy Consult ? Medication Reconciliation Pharmacy has completed the medication reconciliation. Spoke with pt and he confirmed his medications.
--- NOTE | 2024-12-16 11:01 | HO.ANESPROP2 ---
Documented by User: Namrata Hernandez NP 12/16/24 11:11 HPI - Anesthesia Eval Consult details Narrative: 69 yr old male for appendectomy laparoscopic Daily marijuana/tobacco user No recent illness. No CP/SOB with moderate activity Seen by PVC 06/2024 for coronary artery calcification seen on chest CT for lung CA screening: no further cardiac testing ordered;01/2024 EKG NSR, rate 61, no ST-T wave changes PMFSH Active Problems Active Problems: All Active Problems Elevated WBC count (Acute) Abdominal pain (Acute) Acute appendicitis (Acute) Cigarette smoker (Acute) HTN (hypertension) (Acute) Diverticulitis of colon with perforation (Acute) Family History Family history of problems with anesthesia: No Surgical History History of Problems with Anesthesia: No Social History Social History Household Members: Spouse Housing: House Alcohol intake: current Alcohol intake frequency: does not drink Alcohol type: beer Patient Tobacco Use Status: Current everyday Tobacco user Tobacco use type: Cigarette Cigarette Packs Per Day: 1 Cigarettes Per Day: 20.0 Smoked in Last 30 Days: Yes e-Cigarette/Vaping Use: Never Used Second Hand Smoke Exposure: No Use of substances other than those prescribed or required for medical reasons: No Have you been hit, kicked, punched, or otherwise hurt by someone within the past year? If so, by whom?: No Are you DNR?: No Advance Directives: No Advance Directives Information Provided: No Do you have a plan to hurt others: No Plan service: Yes Current occupational status: retired [employer] Allergies Allergy/AdvReac Type Severity Reaction Status Date / Time No Known Allergies Allergy Verified 12/16/24 02:31 Active Medications: Current Medications Acetaminophen (Acetaminophen 325 Mg Tablet) 650 mg PO Q6H PRN PRN Reason: Pain, Mild 1-3,fever,headache Calcium Carbonate (Calcium Carbonate 750 Mg Tab.Chew) 750 mg PO Q4H PRN PRN Reason: Heartburn Lactated Ringer's (Lr) 1,000 mls @ 100 mls/hr IVCONT .Q10H RAMSES Piperacillin Sod/Tazobactam (Sod 3.375 gm/ Sodium Chloride) 50 mls @ 100 mls/hr IV Q6H RAMSES Magnesium Hydroxide (Milk Of Magnesia 30 Ml Oral.Susp) 30 ml PO DAILY PRN PRN Reason: Constipation Melatonin (Melatonin 3 Mg Tablet) 6 mg PO BEDTIME PRN PRN Reason: Insomnia Morphine Sulfate (Morphine Sulfate 4 Mg/Ml Cartridge) 3 mg IVPUSH QID PRN; Protocol PRN Reason: Pain, Severe (Pain Scale 7-10) Last Admin: 12/16/24 09:29 Dose: 3 mg Sodium Chloride (0.9 % Sodium Chloride Flush 3 Ml Syringe) [facility] Medications ?Medication ?Instructions ?Recorded ?Confirmed ?Last Taken ?Type lisinopril 20 mg tablet 1 tab PO DAILY 06/22/21 12/16/24 12/15/24 07:00 History aspirin 81 mg tablet 81 mg PO DAILY 12/16/24 12/16/24 12/15/24 07:00 History rosuvastatin 10 mg tablet 10 mg PO BEDTIME 12/16/24 12/16/24 12/14/24 History sildenafil 100 mg tablet 100 mg PO NEEDED intercourse 12/16/24 12/16/24 Unknown History Exam Height,Weight and Vital Signs: Height 5 ft 6 in Weight 72.4 kg Last Vital Signs Temp 99.0 F 12/16/24 08:09 Pulse 69 12/16/24 08:09 Resp 16 12/16/24 08:09 BP 122/55 L 12/16/24 08:09 Pulse Ox 95 12/16/24 08:09 O2 Del Method Room Air 12/16/24 08:09 Pertinent Lab Results Pertinent Lab Results: Laboratory Tests 12/16/24 12/16/24 12/16/24 02:44 04:38 08:02 WBC 16.7 H RBC 4.32 L Hgb 13.5 L Hct 40.0 L MCV 92.6 MCH 31.3 MCHC 33.8 RDW 13.5 Plt Count 240 D MPV 9.5 Immature Gran % (Auto) 0.3 Neut % (Auto) 76.2 H Lymph % (Auto) 14.6 L Robeson % (Auto) 7.7 Eos % (Auto) 0.8 Baso % (Auto) 0.4 Lymph # (Auto) 2.4 Robeson # (Auto) 1.3 H Eos # (Auto) 0.1 Baso # (Auto) 0.1 Abs Immat Gran (auto) 0.05 H Absolute Neuts (auto) 12.7 H Absolute Nucleated RBC 0.000 Nucleated RBC % (auto) 0.0 PT 12.5 H INR 1.1 Sodium 141 Potassium 3.9 Chloride 109 H Carbon Dioxide 23 Anion Gap 13 BUN 13 Creatinine 0.79 Estim Creat Clear Calc 81.8 Estimated GFR > 60 Random Glucose 120 H Lactic Acid Calcium 8.9 D Total Bilirubin 0.5 AST 30 ALT 24 Alkaline Phosphatase 61 Total Protein 6.9 Albumin 4.3 Lipase 23 Urine Color Yellow Urine Appearance Clear Urine pH 5.5 Ur Specific Dennard 1.010 Urine Protein Negative Urine Glucose (UA) Negative Urine Ketones Negative Urine Blood Negative Urine Nitrite Negative Ur Leukocyte Esterase Negative Urine RBC 0-2 Urine WBC 0-5 Ur Squamous Epith Cells 0-2 Urine Bacteria None Seen Hyaline Casts 0-2 12/16/24 08:03 WBC RBC Hgb Hct MCV MCH MCHC RDW Plt Count MPV Immature Gran % (Auto) Neut % (Auto) Lymph % (Auto) Robeson % (Auto) Eos % (Auto) Baso % (Auto) Lymph # (Auto) Robeson # (Auto) Eos # (Auto) Baso # (Auto) Abs Immat Gran (auto) Absolute Neuts (auto) Absolute Nucleated RBC Nucleated RBC % (auto) PT INR Sodium Potassium Chloride Carbon Dioxide Anion Gap BUN Creatinine Estim Creat Clear Calc Estimated GFR Random Glucose Lactic Acid 1.0 Calcium Total Bilirubin AST ALT Alkaline Phosphatase Total Protein Albumin Lipase Urine Color Urine Appearance Urine pH Ur Specific Dennard Urine Protein Urine Glucose (UA) Urine Ketones Urine Blood Urine Nitrite Ur Leukocyte Esterase Urine RBC Urine WBC Ur Squamous Epith Cells Urine Bacteria Hyaline Casts Airway Mallampati Class: II TM Dist: >3cm Loose/Missing/Broken Teeth: No Heart: RRR Lungs: CTAB Assessment and Plan Final Anesthetic Review Family History of Problems with Anesthesia: No History of Problems with Anesthesia: No Documented by User: Zackary Barker MD 12/16/24 13:11 [facility] Social History Social History Household Members: Spouse Housing: House Alcohol intake: current Alcohol intake frequency: does not drink Alcohol type: beer Patient Tobacco Use Status: Current everyday Tobacco user Tobacco use type: Cigarette Cigarette Packs Per Day: 1 Cigarettes Per Day: 20.0 Smoked in Last 30 Days: Yes e-Cigarette/Vaping Use: Never Used Second Hand Smoke Exposure: No Use of substances other than those prescribed or required for medical reasons: No Have you been hit, kicked, punched, or otherwise hurt by someone within the past year? If so, by whom?: No Are you DNR?: No Advance Directives: No Advance Directives Information Provided: No Do you have a plan to hurt others: No Plan service: Yes Current occupational status: retired [employer] Allergies Allergy/AdvReac Type Severity Reaction Status Date / Time No Known Allergies Allergy Verified 12/16/24 02:31 Home Medications ?Medication ?Instructions ?Recorded ?Confirmed ?Last Taken ?Type lisinopril 20 mg tablet 1 tab PO DAILY 06/22/21 12/16/24 12/15/24 07:00 History aspirin 81 mg tablet 81 mg PO DAILY 12/16/24 12/16/24 12/15/24 07:00 History rosuvastatin 10 mg tablet 10 mg PO BEDTIME 12/16/24 12/16/24 12/14/24 History sildenafil 100 mg tablet 100 mg PO NEEDED intercourse 12/16/24 12/16/24 Unknown History Exam Exam Date and Time: 12/16/24 Airway Neck ROM: Full Assessment and Plan Assessment Anesthesia Assessment: Anesthesia Plan Discussed, Smoking Cess. Discussed and Chart Reviewed Final Anesthetic Review NPO: Yes ASA Class: II Final Preanesthetic Review: No Changes in Pt Med Stat, Meds/Allgs Chart Reviewed, Consent Obtained/Reviewed and Anes Risks/Benef Reviewed Patient Risk: Low Procedure Risk: Low Anesthetic Plan Anesthetic Plan: GA Disposition: Standard PACU
--- NOTE | 2024-12-16 11:25 | PC.NURSE ---
Patient has a #20 IV to left AC. IV intact, dressing clean dry intact, flushes without difficulty.
--- NOTE | 2024-12-16 14:04 | W.PM.OPN ---
Operative Note Operative Note Date of Service: 12/16/24 Narrative: Preop diagnosis: Acute appendicitis Postop diagnosis: Acute appendicitis, markedly indurated, with murky peritoneal fluid Procedure: Laparoscopic appendectomy Surgeon: Anthony Clemens MD dental chairside assistant: TALISHA Torrez The patient is a 69-year-old male who came to the ER early this morning because of lower abdominal pain. His CAT scan showed findings consistent with the acute appendicitis. She understood the technique of the planned procedure as well as the risks, benefits, and alternatives. He was brought to the operating room. He was placed supine under general anesthesia via endotracheal tube. The abdomen was prepped and draped in the usual sterile fashion. A surgical time-out was done. The patient was receiving scheduled IV Zosyn. I made a short infraumbilical incision with a blade 15. This carried down through the full-thickness of the skin and subcutaneous fat down to the fascia. The fascia was incised. The peritoneum was entered. Through this incision a Lee port was introduced. Pneumoperitoneum was introduced to a pressure of 15 mm Hg. From here on the rest of the procedure was done under vision with the 5 mm 30 degree scope. With laparoscopic visualization and inserted a 5 mm in the left lower quadrant through a small stab incision. A 5 mm port was introduced through a small incision in the suprapubic margin. Graspers were placed through the these 2 working ports. The patient was placed in a head-down and [id number] position. We reflected the small bowel loops away from the right lower quadrant. By doing so was able to visualize the cecum. By tracing the tenia of the colon, I was able to see the appendix. The appendix was very indurated, markedly inflamed, very erythematous and adherent to the sidewall. Furthermore, there was a lot of murky peritoneal fluid within the pelvis as well as the right lower quadrant I applied a grasper gently on the distal end of the appendix to put this on stretch. By doing so was able to visualize the base of the appendix. I created a mesenteric window using the [place] dissector. I positioned the Endo-MARK 30 mm stapler across the base of the appendix near the cecum. This was fired and the appendix was transected. With traction on the appendix anteriorly I proceeded then serially divide the attached mesentery of the appendix with the LigaSure until the entire appendix was completely . The appendix was retrieved through an endobag through the umbilical incision. I reinserted all ports and re-insufflated I examined the area of dissection. There was note of good hemostasis. There was no bleeding seen. I observed all 4 quadrants. There was no other pathology seen. There was no evidence of any bowel injury. I copiously irrigated the right lower quadrant as well as the pelvis and suctioned out the irrigant fluid Once hemostasis was confirmed, I proceeded to desufflated the port sites. I removed all ports under vision with the laparoscope. The umbilical port was removed last The fascia of the umbilical incision with a closed with a [id number] Polysorb 0 stitch. I also closed the left lower quadrant fascial incision with a single Polysorb 3-0 stitch I closed all skin incisions with Polysorb 4-0 subcuticular running sutures. All incisions were infiltrated with Marcaine 0.5% for postop analgesia. Dressings were applied and the procedure was completed The patient tolerated the procedure well. There were no immediate complications. Initial and final counts of sponges and instruments were correct. Estimated blood loss was about 25 cc The patient was extubated without difficulty and transferred to the recovery room with stable vital signs
--- NOTE | 2024-12-16 15:38 | PM.EVENT ---
Event Note Date of Service: 12/16/24 Event Note: Seen postop Status post laparoscopic appendectomy Appears to have good pain control Stable vital signs Abdomen is soft Pain management On diet Likely DC home tomorrow Significant other updated Time Spent With Patient Time: Total time managing care of this patient today ____ minutes.
[2024-12-16] MEDS: Lactated Ringers 1,000 ML 80 ML IVCONT (16:13)
[2024-12-16] MEDS: Nicotine 14 MG PATCH.TD24 TRANSDERMA (16:13)
[2024-12-16] MEDS: 0.9 % Sodium Chloride Flush 3 ML SYRINGE IVFLUSH ×2 (16:14→20:03)
[2024-12-17 03:05] VITALS: BP 111/50; PULSE 51; RESP 14; TEMP 36.2; O2SAT 99
--- NOTE | 2024-12-17 07:33 | PM.PNGS ---
Subjective Subjective Date of Service: 12/17/24 <Salvador Rivera PA-C - Last Filed: 12/17/24 07:37> 12/17/24 <Anthony Clemens MD - Last Filed: 12/17/24 07:42> Interval history: doing well, denies pain, has only needed tylenol for pain. He is ambulating. Tolerated diet yesterday after procedure. denies nausea or vomiting <Salvador Rivera PA-C - Last Filed: 12/17/24 07:37> Physical Exam Vital Signs: Vital Signs: Last Vital Signs Temp 97.1 F 12/17/24 03:05 Pulse 51 12/17/24 03:05 Resp 14 12/17/24 03:05 BP 111/50 L 12/17/24 03:05 Pulse Ox 99 12/17/24 03:05 O2 Del Method Room Air 12/17/24 03:05 O2 Flow Rate 2 12/16/24 14:35 BMI result Body Mass Index 25.3 <JAMISON Crowley Last Filed: 12/17/24 07:37> Const: General: comfortable and no acute distress <Salvador Rivera PA-C - Last Filed: 12/17/24 07:37> Orientation/consciousness: patient oriented x3 <JAMISON Crowley Last Filed: 12/17/24 07:37> Resp: Effort & Inspection: normal respiratory effort and able to speak in complete sentences <Salvador Rivera PA-C - Last Filed: 12/17/24 07:37> GI: Other: incision site dressings in place, no strike through <Salvador Rivera PA-C - Last Filed: 12/17/24 07:37> Inspection: No distended <Salvador Rivera PA-C - Last Filed: 12/17/24 07:37> Palpation (GI): Soft to palpation and nontender <JAMISON Crowley Last Filed: 12/17/24 07:37> Neuro: General: patient oriented x3 <JAMISON Crowley Last Filed: 12/17/24 07:37> Objective Data Active Medications Acetaminophen (Acetaminophen 325 Mg Tablet) 650 mg PO Q6H PRN PRN Reason: Pain, Mild 1-3,fever,headache Last Admin: 12/16/24 23:02 Dose: 650 mg Documented By: WALTER Atorvastatin Calcium (Atorvastatin Calcium 40 Mg Tablet) 40 mg PO BEDTIME [facility] Last Admin: 12/16/24 20:02 Dose: 40 mg Documented By: WALTER Calcium Carbonate (Calcium Carbonate 750 Mg Tab.Chew) 750 mg PO Q4H PRN PRN Reason: Heartburn Influenza Virus Vaccine (Flu Vacc [id number](6mo Up)/Pf 0.5 Ml Syringe) 0.5 ml IM .ONCE ONE Stop: 12/17/24 09:01 Lisinopril (Lisinopril 20 Mg Tablet) 20 mg PO DAILY [facility]; Protocol Magnesium Hydroxide (Milk Of Magnesia 30 Ml Oral.Susp) 30 ml PO DAILY PRN PRN Reason: Constipation Melatonin (Melatonin 3 Mg Tablet) 6 mg PO BEDTIME PRN PRN Reason: Insomnia Morphine Sulfate (Morphine Sulfate 4 Mg/Ml Cartridge) 4 mg IVPUSH Q4H PRN; Protocol PRN Reason: Pain, Severe (Pain Scale 7-10) Nicotine (Nicotine 14 Mg Patch.Td24) 14 mg TRANSDERMA DAILY [facility] Last Admin: 12/16/24 16:13 Dose: 14 mg Documented By: LINDY Oxycodone HCl (Oxycodone Hcl Immed Release 5 Mg Tablet) 5 mg PO Q4H PRN PRN Reason: Pain, Moderate(Pain Scale 4-6) Sodium Chloride (0.9 % Sodium Chloride Flush 3 Ml Syringe) 3 ml IVFLUSH QSHIFT [facility] Last Admin: 12/16/24 20:03 Dose: 3 ml Documented By: WALTER <Salvador Rivera PA-C - Last Filed: 12/17/24 07:37> Labs CBC & Chem 7: 12/16/24 02:44 12/16/24 02:44 <Salvador Rivera PA-C - Last Filed: 12/17/24 07:37> Labs: Laboratory Results - last 24 hr 12/16/24 12/16/24 08:02 08:03 PT 12.5 H INR 1.1 Lactic Acid 1.0 <Salvador Rivera PA-C - Last Filed: 12/17/24 07:37> Procedures Date of Service Date of Service: 12/17/24 <Salvador Rivera PA-C - Last Filed: 12/17/24 07:37> 12/17/24 <Anthony Clemens MD - Last Filed: 12/17/24 07:42> Progress Note: A&P Assessment and plan (1) S/P laparoscopic appendectomy: Status: Acute <Salvador Rivera PA-C - Last Filed: 12/17/24 07:37> Assessment and Plan: Tolerating diet Says he does not have any significant pain Abdomen is soft and benign Dressings dry Okay to DC home today Discharge instructions reviewed with the patient Seen and examined independently <Anthony Clemens MD - Last Filed: 12/17/24 07:42> Assessment and Plan: 69 year old male now POD 1 s/p laparascopic appendectomy. Doing very well this morning, denies pain. He is ambulating, tolerating regular diet without nausea or vomiting. Urinating without issues. He looks well, abdomen exam is soft and benign. Incision sites clean and dry, dressings in place. He feels erady to go home. Reinforced return precautions and activity restrictions. patient will follow up in the office in 2 weeks <Salvador Rivera PA-C - Last Filed: 12/17/24 07:37> Time Spent With Patient Time: Total time managing care of this patient today ____ minutes. <Salvador Rivera PA-C - Last Filed: 12/17/24 07:37> Quality Stroke Does the patient have a stroke diagnosis?: No <Salvador Rivera PA-C - Last Filed: 12/17/24 07:37> VTE Prior VTE?: No <Salvador Rivera PA-C - Last Filed: 12/17/24 07:37> VTE Risk Level:: Surgical - moderate <Salvador Rivera PA-C - Last Filed: 12/17/24 07:37> VTE Device Contraindication: N/A - Device Ordered <Salvador Rivera PA-C - Last Filed: 12/17/24 07:37> VTE Drug Contraindication: Treatment Not Indicated <Salvador Rivera PA-C - Last Filed: 12/17/24 07:37>
[2024-12-17 08:00] VITALS: BP 117/56; PULSE 58; RESP 15; TEMP 36.4; O2SAT 98
--- NOTE | 2024-12-17 08:22 | MHC.CM.PN ---
pt dcd home self care
[2024-12-17] MEDS: Flu Vacc TS2025-26(6mo up)/PF 0.5 ML SYRINGE IM (08:39)
--- NOTE | 2024-12-17 08:53 | PM.DS ---
DS: Providers Provider Date of Service: 12/17/24 Date of admission: 12/16/24 08:12 Date of discharge: 12/17/24 Primary care physician: TALISHA Brito Admitting clinician: Anthony Clemens Attending physician on admission: Anthony Clemens Attending physician on discharge: Anthony Clemens DS: Diagnosis Discharge Diagnosis (1) S/P laparoscopic appendectomy: Status: Acute DS: Summary Hospital Course Hospital Course: Admission HPI: 69 year old male with a history of HTN, HLD, diverticulitis who presented to the emergency department following a 1 day history of lower abdominal discomfort. Patient states that his pain began yesterday afternoon as a generalized discomfort in the lower abdomen and continued to get worse so he decided to come to be evaluated. He denies nausea or vomiting, fever/chills. Admits to decreased appetite. he does have a history of diverticulitis and states this feels somewhat similar to that. Work up in the ED significant for leukocytosis 16.7, CT abdomen showing a dilated appendix, with visualized appendicolith, suggestive of acute appendicitis without perforation or abscess. Additionally there is a colonic diverticulosis with mild inflammatory changes suggestive of possible developing mild diverticulitis. Currently he feels as though the pain is better, but attributes this to the pain medications he received. He has been started on IV Zosyn. Patient states his surgical history includes a repair of a hernia when he was an . Unsure where this hernia was. He denies any additional surgical history. He endorses smoking, about 1 PPD. occasional alcohol and marijuana use. Denies addiitonal drug use Hospital course: Patient was admitted for acute appendicitis, he was started on IV Zosyn, with plan to proceed with laparoscopic appendectomy later in the afternoon. Patient tolerated the procedure well and was transferred back to the [facility] floor for further evaluation management. This morning felt well, is ambulating, tolerating regular diet. Denies abdominal pain. On exam his abdomen is soft and benign, incision site dressings are in place. No strike through. Patient fell today discharge. At the time of discharge, patient was in stable condition. We reinforced return precautions and activity restrictions, he will follow-up 2 weeks as an outpatient in our office. Status at Discharge Functional status at discharge: independent ambulation Overall status at discharge: patient is back to baseline Time Attestation Discharge Coordination Time (in mins): 30 Quality: Safe Use of Opioids Does Pt have an Active Cancer Diagnosis on the Problem List?: No Quality: Stroke Does the patient have a stroke diagnosis?: No Physical Exam Vital Signs: Vital Signs: Last Vital Signs Temp 97.5 F 12/17/24 08:00 Pulse 58 12/17/24 08:00 Resp 15 12/17/24 08:00 BP 117/56 L 12/17/24 08:00 Pulse Ox 98 12/17/24 08:00 O2 Del Method Room Air 12/17/24 08:00 O2 Flow Rate 2 12/16/24 14:35 BMI result Body Mass Index 25.3 Const: General: comfortable and no acute distress Orientation/consciousness: patient oriented x3 Resp: Effort & Inspection: normal respiratory effort and able to speak in complete sentences GI: Other: incision site dressings in place, no strike through Inspection: No distended Palpation (GI): Soft to palpation and nontender Neuro: General: patient oriented x3 DS: Data Data Completed and Pending Pending studies at discharge: Pending at discharge 12/16/24 14:09 Surgical [PTH] Routine Discharge Plan Discharge Anticipated Discharge Date/Time: 12/17/24 07:31 Patient Disposition: Home, Self-Care Discharge Diagnosis: acute appendicitis Referrals: Tania Morton PA [Primary Care Provider, Internal Medicine] - 1 Week Anthony Clemens MD [Physician, General Surgery] - 2 Weeks Discharge Medications: New docusate sodium [Colace] 100 mg capsule 100 mg PO BID PRN (Reason: constipation) Qty: 30 0RF oxycodone 5 mg tablet 5 mg PO Q4H PRN (Reason: pain (scale score 7-10)) Qty: 24 0RF Rx Instructions: Partial Fill upon patient request. Continued lisinopril 20 mg tablet 1 tab PO DAILY rosuvastatin 10 mg tablet 10 mg PO BEDTIME sildenafil 100 mg tablet 100 mg PO NEEDED aspirin 81 mg Tablet 81 mg PO DAILY Discharge Orders: Discharge Order (Routine); Ordered 12/17/24 Ordered By: Salvador Rivera Diet: Advance to usual diet Activity on Discharge: No heavy lifting Stand Alone Forms: Patient Portal Discharge page Print Language: Thai Activity Restrictions/Additional Instructions: If the incision area is tender, you may apply an ice pack for short intervals (No more than 20 minutes on, followed by at least 20 minutes off). Do not apply heat. Do not use creams, lotions, or topical antibiotics. These can cause infection or allergic reaction. Ok to shower 24 hours after your surgery. Remove bandaids in 2 days. You have steri strips (small white strips) covering your incision- these will fall off ~1 week. Follow up in office with Dr. Clemens in 2 weeks. ([phone]) No heavy lifting (>10-20lbs) or strenuous activity! Call Your Doctor If: -Your temperature exceeds 101.5? F -You experience excessive pain or swelling -You have an unexpected reaction to medication -You have excessive bleeding -You experience continued vomiting/nausea -Your incision begins to separate -Your incision shows signs of infection such as increased redness, swelling, excessive pain, drainage (light blood or clear fluid is normal) or heat Care Plan Goals: Return to baseline health and resume normal activities following recovery period. Health Concerns: acute appendicitis hypertension Plan of Treatment: s/p laparoscopic appendectomy follow up in the office in 2 weeks Assessment: Doing well post op.
--- NOTE | 2024-12-17 09:26 | HO.POSTANES ---
Post Anesthesia Evaluation Post Anesthesia Evaluation Date of Service: 12/17/24 Vital Signs: Vital Signs Temp Pulse Resp BP Pulse Ox O2 Del Method 12/17/24 08:00 97.5 F 58 15 117/56 L 98 Room Air 12/17/24 03:05 97.1 F 51 14 111/50 L 99 Room Air Anesthesia: General Endotracheal-GETA Mental Status: Awake Pain Control: Satisfactory Nausea/Vomiting: None Hydration: Adequate Anesthesia-Related Issues: No Anes. Related Issues
== END 2024-12-17 09:30 | disposition home or self-care (01) | DRG 399 ==
LOC: HO.ED 08:16 → HO.EDOVER 09:06 → HO.S3 09:18
PROVIDERS: Emergency Medicine; Surgery; Emergency Provider Emergency Medicine; PCP Physician Assistant
PROC: 0DTJ4ZZ Resection of Appendix, Percutaneous Endoscopic Approach (ICD-10-PCS; CPT 44970; principal; 2024-12-16 13:00)
DX: K35.80 Unspecified acute appendicitis (principal); F17.210 Nicotine dependence, cigarettes, uncomplicated; Z71.6 Tobacco abuse counseling; Z79.82 Long term (current) use of aspirin; Z79.899 Other long term (current) drug therapy
CPT/HCPCS: 44970; 36415; 74177; 80053; 81001; 83605; 83690; 85025; 85610; 87040; 88304; 90656; 99221; 99285; J0131; J1100; J1171; J2003; J2270; J2405; J2543; J2704; J2795; J3010; J7120; Q9967

== ENCOUNTER → 2024-12-16 04:18 | Outpatient (BNV) | payer MEDICARE, SELFPAY | PROVIDERS: Emergency Provider Emergency Medicine; PCP Physician Assistant; Visit Provider Radiology Vascular & Interventional Radiology | DX: R10.32 Left lower quadrant pain (principal); Z87.19 Personal history of other diseases of the digestive system | CPT/HCPCS: 74177 ==

== ENCOUNTER → 2024-12-16 08:12 | Outpatient (BNV) | payer MEDICARE, SELFPAY | PROVIDERS: Emergency Provider Emergency Medicine; PCP Physician Assistant | DX: K35.30 Acute appendicitis with localized peritonitis, without perforation or gangrene (principal) | CPT/HCPCS: 44970 ==

== ENCOUNTER 2025-01-07 10:29 | Outpatient (AMB) | payer MEDICARE, SELFPAY ==
--- NOTE | 2025-01-07 10:30 | A.OFFVIS_ITS ---
Vital Signs 01/07/25 10:34 Height 5 ft 6 in Weight 156 lb 8.451 oz BMI 25.3 Intake Visit Reasons: s/p appy Intake Note: Patient is seen in office for post op assessment post laparoscopic appendectomy. 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 Appetite and bowel function at baseline. Denies fevers or chills. Denies nausea or vomiting. States incision sites have been healing well. Has been avoiding heavy lifting. [facility] Surgical History (Updated 01/07/25 @ 10:43 by Salvador Rivera PA-C) History of laparoscopic appendectomy (12/16/24) Social History Household Members: Spouse Housing: House Do you presently have visiting nurse or other home services: No Alcohol intake: current Alcohol intake frequency: does not drink Alcohol type: beer Patient Tobacco Use Status: Current everyday Tobacco user Tobacco use type: Cigarette Cigarette Packs Per Day: 1 Cigarettes Per Day: 20.0 Years Smoked: 50 e-Cigarette/Vaping Use: Never Used Second Hand Smoke Exposure: Yes service: No Current occupational status: retired Physical Exam Vital Signs: BMI result Body Mass Index 25.3 Const General: comfortable and no acute distress Orientation/consciousness: patient oriented x3 GI Other: Incision sites well healed, no surrounding erythema, no fluctuance, nontender. Some mild deep induration at umbilical incision site, likely postsurgical changes Inspection: No distended Palpation (GI): Soft to palpation and nontender Neuro General: patient oriented x3 Assessment & Plan Assessment & Plan (1) History of laparoscopic appendectomy: Onset Date: 12/16/24 Comment: Anthony Clemens MD Code(s): Z90.49 - Acquired absence of other specified parts of digestive tract Category: Medical Plan 69-year-old male s/p laparoscopic appendectomy with Dr. Clemens on 12/16/2024 returning to the office for follow up. Overall patient doing very well, has no concerns. No issues with diet or bowel function. Tolerating gentle ambulation. Avoiding heavy lifting. On exam incision sites appear to be healing well, no concern for infection at this time. There was some deep induration deep to the umbilical incision site which is likely postsurgical changes, it I recommended that if this is bothersome to the patient he can do warm compress 2-3 times per day as needed. Pathology report as follows: Acute focally gangrenous appendicitis and periappendicitis with fibrinous exudate At this point can remove any activity restrictions, recommended he slowly work back to baseline. He is agreeable with this plan. At this point no longer requiring follow up, can follow up as needed with any concerns in the future. Medications: Discontinued oxycodone Partial Fill upon patient request. Discontinued Reason: Patient Completed Course 5 mg PO Q4H PRN 24 tabs 0RF pain (scale score 7-10) Coding Level of Care Code Global (33129) Diagnoses History of laparoscopic appendectomy Z90.49
[2025-01-07 10:34] VITALS: BMI 25.3
== END 2025-01-07 10:40 | disposition home or self-care (01) ==
LOC: HO.HGS 10:29
PROVIDERS: PCP Physician Assistant
DX: Z90.49 Acquired absence of other specified parts of digestive tract (principal)
CPT/HCPCS: 99024

== ENCOUNTER → 2025-01-07 10:29 | Outpatient (BNVA) | payer MEDICARE, SELFPAY | PROVIDERS: PCP Physician Assistant | DX: Z98.890 Other specified postprocedural states (principal); Z90.49 Acquired absence of other specified parts of digestive tract | CPT/HCPCS: 99212 ==